=== PATIENT | male | born 1985 | race African-American/Black ===

== ENCOUNTER 2025-07-08 04:57 | Inpatient (IN) ==
[2025-07-08 05:46] LABS: Hematocrit (blood only) 47.6 % (42.0-52.0); Hemoglobin 15.5 g/dL (14.0-18.0); Immature Granulocytes # (auto) 0.04 K/uL (0.01-0.20); Immature Granulocytes % (auto) 0.5 %; Mean Corpuscular Hemoglobin 28.6 pg (25.0-34.0); Mean Corpuscular Volume 87.8 fL (80.0-100.0); Platelet Count 316 K/uL (130-400); RDW Standard Deviation 45.6 fL (36.4-46.3); Red Blood Count 5.42 M/uL (4.70-6.10); White Blood Count 7.59 K/ul (4.8-10.8)
--- NOTE | 2025-07-08 06:00 | Emergency Department Note ---
Impression & Plan Congestive heart failure, Elevated troponin, Pleural effusion, Epigastric discomfort, Hepatic congestion ED Provider Note Name: SUNITHA DINERO Age: 39 Sex: Male Arrives Via: Walk-In Informant: Patient ED Provider: All Enamorado MD Chief Complaint: Epigastric discomfort Impression: As per impressions above Medical Decision Makin-year-old gentleman arrives for evaluation of primarily epigastric pain ongoing for the last month and gradually worsening. Associated with some increasing dry cough the last few days to week as well. Is worse with exertion and any eating. Examination he does seem to have a fair amount of epigastric tenderness palpation. He is quite hypertensive on arrival as well. He was given some IV fluids in case his tachycardia that was also noted was dehydration related. This resulted in an improvement in his heart rate but he did start having some hypoxia on room air while sleeping. Chest x-ray shows a mildly enlarged cardiac border. CT was obtained given the abdominal pain and tenderness to palpation. Fortunately CT does not show any acute surgical findings however it does show a fair amount of hepatic congestion along with pleural effusions and a small pericardial effusion. My suspicion is patient is actually having some form of congestive failure. This may be related to the significant hypertension he arrived with or other cause. His troponin is also bumped some though it is stable on recheck and reviewing chart he had a similarly elevated troponin earlier in the year when evaluated for shortness of breath. I think given the constitution of findings patient will need further workup for evaluation of these issues. Patient is comfortable with plan. He is not significantly dyspneic and he does not have any clear PE risk factors thus we will hold off on CT PE given he already received the dye load and I think PE is low likelihood. He also had a CT PE within the last year which was also negative without risk factors since then. Triage/Nursing Notes reviewed by Me Differential:Pancreatitis, cholecystitis, GERD/peptic ulcer disease, ACS, dissection, PE, pneumonia, many other pathologies considered Vital Signs: reviewed and remarkable for hypertension, tachycardia Interventions: Normal saline bolus 1 L IV Labs:ED labs Reviewed by me and remarkable for mildly elevated troponin stable and recheck Imagin view chest x-ray mild congestive findings with an enlarged heart compared to CT of chest from several months ago. CT of the abdomen pelvis as per my informal interpretation reveals no free air, obstruction, significant inflammatory findings. See radiologist read for full. EKG:As per my interpretation. Indication epigastric pain. Sinus tachycardia 124 bpm QTc of 474. There is no ectopy nor overt ischemia appreciated. Compared to EKG of September 27, 2024 no significant change. Cardiac/Tele Monitoring: Cardiac Monitoring: An Order was placed for continuous cardiac monitoring. The monitor shows a rate of 120 with a sinus tach rhythm. [facility] and manage patient. Plan: Disposition:Hospitalization. Condition: Fair History of Present Illness: 39-year-old male arrives for evaluation of epigastric pain. Patient notes for the last month or so the pain has been gradually worsening. States when he gets up and moves or when he eats anything he gets pretty severe epigastric discomfort. The pain radiates to the right upper quadrant as well. Associated with nausea especially with eating. He also notes he has been belching and burping a lot the last few weeks. No specific chest pain but admits that he feels like he gets palpitations at times. He denies any lower abdominal pain. He has no history of abdominal issues or surgeries. He does have a familial history of a gastric ulcer bleeding in his grandmother. Patient has not had any black or bloody stools. Patient does not take any daily medications. He notes persistent cough as well for the last week. Cough is with minimal sputum and he does not feel short of breath or have any chest pain. He has not had any fevers. Does note some mild left ankle swelling which is chronic. Past Medical History: Asthma/bronchitis Home Medications: None Allergies: Walnuts Vitals:Blood Pressure: 162/122, Pulse 124, RR 16, T 36.9C, O2 95% on RA Physical Exam: GENERAL: Patient is anxious appearing and in mild distress. RESPIRATORY: No dyspnea. Clear to auscultation and equal bilaterally. CARDIOVASCULAR: Mild tachycardic.No murmur appreciated. GASTROINTESTINAL: Moderate epigastric tenderness palpation and mild right upper quadrant tenderness palpation with patient immediately belching/dry heaving with palpation of upper abdomen. Lower abdomen soft nontender. Normal active bowel sounds. EXTREMITIES: Normal motion all extremities, no cyanosis, trace edema. NEUROLOGIC: Alert and oriented. No focal neurologic deficits appreciated SKIN: No rash, no jaundice, no diaphoresis. PSYCH: Appropriate GCS: 15 ED Course: Times/Reassessments: Patient's heart rate has come down a bit with the initial IV fluids though it is noted that his oxygen drops at that when he falls asleep. No significant shortness of breath and he notes his epigastric pain has improved significantly. Agreeable to hospitalization for further workup and evaluation. All Enamorado MD Past Med/Surg History Problem List (Updated 07/08/25 @ 11:37 by All Enamorado MD) Hepatic congestion (Acute) Epigastric discomfort (Acute) Pleural effusion (Acute) Elevated troponin (Acute) Congestive heart failure (Acute) Shortness of breath Elevated troponin Edema Epigastric abdominal pain HSV-1 infection (Chronic) Fatigue (Acute) Left cervical lymphadenopathy (Acute) Low back pain (Acute) Medical History (Updated 07/08/25 @ 11:37 by All Enamorado MD) HTN (hypertension) Surgical History (Updated 07/08/25 @ 10:06 by Rachel Sanchez PA-C) No pertinent past surgical history Family History (Updated 07/08/25 @ 10:07 by Rachel Sanchez PA-C) Father Alcoholism Grandmother (Maternal) Alcoholism Mother Stomach ulcer Social History (Updated 07/08/25 @ 10:07 by Rachel Sanchez PA-C) Smoking Status: Current some day smoker Tobacco Type: Cigars Hx Alcohol Use: Yes Hx Substance Use: No Preferred Language: French Current Living Situation: Alone current occupational status: employed 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 [employer] Feels Safe at Home: Yes Allergies Allergies Allergy/AdvReac Type Severity Reaction Status Date / Time walnut Allergy Unknown "WEIRD Unverified 07/17/23 01:39 FEELING IN MY TONGUE,INFLAMMATION" Home Meds Home Medications Medication Instructions Recorded Confirmed No Known Home Medications 07/17/23 07/08/25 Results & Data (ED) Vital Signs Vital Signs - 24 hr 07/08/25 04:58 07/08/25 05:00 07/08/25 05:00 Temperature 36.6 C 36.9 C Temperature Source Oral Axillary Pulse Rate 118 H 117 H Pulse Rate [Apical] 117 H Pulse Rate from SpO2 Sensor Pulse Rhythm Regular Pulse Strength Normal Respiratory Rate 19 16 19 Respiratory Effort / Characteristics Non-Labored Spontaneous Non-Labored Respiratory Depth Normal Normal Respiratory Pattern Regular Regular Blood Pressure 162/122 H Blood Pressure [Right Arm] 151/112 H Blood Pressure Mean 135 Blood Pressure Mean [Right Arm] 125 Blood Pressure Position Sitting Blood Pressure Position [Right Arm] Pulse Oximetry 98 95 98 Oxygen Delivery Method Room Air Room Air Room Air Sepsis Recent Fever Within 48 Hours No Sepsis New/Unexplained Change in Mental Status N/A Sepsis Action Taken by Nursing No Action Required 07/08/25 05:19 07/08/25 07:00 07/08/25 07:00 Temperature Temperature Source Pulse Rate 124 H 106 H Pulse Rate [Apical] 105 H Pulse Rate from SpO2 Sensor 105 H Pulse Rhythm Pulse Strength Respiratory Rate 18 20 Respiratory Effort / Characteristics Non-Labored Spontaneous Respiratory Depth Normal Respiratory Pattern Regular Blood Pressure Blood Pressure [Right Arm] 144/109 H Blood Pressure Mean Blood Pressure Mean [Right Arm] 120 Blood Pressure Position Blood Pressure Position [Right Arm] Lying Pulse Oximetry 98 97 Oxygen Delivery Method Room Air Sepsis Recent Fever Within 48 Hours Sepsis New/Unexplained Change in Mental Status Sepsis Action Taken by Nursing 07/08/25 07:00 07/08/25 07:30 07/08/25 08:00 Temperature Temperature Source Pulse Rate 98 H Pulse Rate [Apical] Pulse Rate from SpO2 Sensor 98 H Pulse Rhythm Pulse Strength Respiratory Rate 21 Respiratory Effort / Characteristics Respiratory Depth Respiratory Pattern Blood Pressure 144/109 H 159/123 H Blood Pressure [Right Arm] Blood Pressure Mean 121 136 Blood Pressure Mean [Right Arm] Blood Pressure Position Blood Pressure Position [Right Arm] Pulse Oximetry 99 Oxygen Delivery Method Sepsis Recent Fever Within 48 Hours Sepsis New/Unexplained Change in Mental Status Sepsis Action Taken by Nursing 07/08/25 08:00 07/08/25 08:30 07/08/25 08:51 Temperature Temperature Source Pulse Rate 98 H 105 H 103 H Pulse Rate [Apical] Pulse Rate from SpO2 Sensor 96 H 103 H 104 H Pulse Rhythm Pulse Strength Respiratory Rate 23 28 H 25 H Respiratory Effort / Characteristics Respiratory Depth Respiratory Pattern Blood Pressure Blood Pressure [Right Arm] Blood Pressure Mean Blood Pressure Mean [Right Arm] Blood Pressure Position Blood Pressure Position [Right Arm] Pulse Oximetry 99 98 100 Oxygen Delivery Method Sepsis Recent Fever Within 48 Hours Sepsis New/Unexplained Change in Mental Status Sepsis Action Taken by Nursing 07/08/25 08:52 Temperature Temperature Source Pulse Rate Pulse Rate [Apical] Pulse Rate from SpO2 Sensor Pulse Rhythm Pulse Strength Respiratory Rate Respiratory Effort / Characteristics Respiratory Depth Respiratory Pattern Blood Pressure 147/118 H Blood Pressure [Right Arm] Blood Pressure Mean 130 Blood Pressure Mean [Right Arm] Blood Pressure Position Blood Pressure Position [Right Arm] Pulse Oximetry Oxygen Delivery Method Sepsis Recent Fever Within 48 Hours Sepsis New/Unexplained Change in Mental Status Sepsis Action Taken by Nursing Laboratory Data 07/08/25 05:17 07/08/25 05:17 Lab Results 07/08/25 07/08/25 Range/Units 05:17 07:15 WBC 7.59 (4.8-10.8) K/ul RBC 5.42 (4.70-6.10) M/uL Hgb 15.5 (14.0-18.0) g/dL Hct 47.6 (42.0-52.0) % MCV 87.8 (80.0-100.0) fL MCH 28.6 (25.0-34.0) pg MCHC 32.6 (32.0-36.0) g/dL RDW Std Deviation 45.6 (36.4-46.3) fL RDW Coeff of Jaswant 14.2 (11.5-14.5) % Plt Count 316 (130-400) K/uL MPV 10.2 (9.4-12.4) fL Immature Gran % (Auto) 0.5 % Neut % (Auto) 58.5 % Lymph % (Auto) 29.8 % Pendleton % (Auto) 9.2 % Eos % (Auto) 1.1 % Baso % (Auto) 0.9 % Neut # (Auto) 4.44 (1.40-6.50) K/uL Lymph # (Auto) 2.26 (1.20-3.40) K/uL [place] # (Auto) 0.70 H (0.11-0.59) K/uL Eos # (Auto) 0.08 (0.00-0.50) K/uL Baso # (Auto) 0.07 (0.00-0.20) K/uL Immature Gran # (Auto) 0.04 (0.01-0.20) K/uL Sodium 141 (136-145) mmol/L Potassium 4.1 (3.5-5.1) mmol/L Chloride 109 H (98-107) mmol/L Carbon Dioxide 25 (21-32) mmol/L Anion Gap 7 (3-11) BUN 20 (6-23) mg/dl Creatinine 1.27 (0.6-1.4) mg/dl Est Cr Clr Drug Dosing 106.2 ml/min eGFR 73.24 BUN/Creatinine Ratio 15.7 (10-20) Glucose 76 (70-99(Fasting)) mg/dl Calcium 8.5 L (8.6-10.3) mg/dl Magnesium 2.1 (1.7-2.4) mg/dl Total Bilirubin 0.5 (0.2-1.0) mg/dl AST 39 (13-39) U/L ALT 74 H (7-52) U/L Alkaline Phosphatase 40 (34-104) U/L Troponin I High Sens 37.1 H 34.6 H (0-20) pg/ml Total Protein 5.6 L (6.0-8.3) gm/dl Albumin 3.6 (3.4-5.0) gm/dl Globulin 2.0 L (2.5-4.0) gm/dl Albumin/Globulin Ratio 1.8 (0.9-2) Triglycerides 119 (0-150) mg/dl Cholesterol 136 (0-200) mg/dl LDL Cholesterol, Calc 77 mg/dl VLDL Cholesterol, Calc 24 (0-30) mg/dl HDL Cholesterol 35 mg/dl Cholesterol/HDL Ratio 3.9 (0-5) Lipase 45 (11-82) U/L TSH 2.290 (0.300-4.500) uIu/ml Administered Medications Discontinued Medications Famotidine (Famotidine 20 Mg Tab) 20 mg PO NOW ONE Stop: 07/08/25 09:00 Last Admin: 07/08/25 09:12 Dose: 20 mg Documented By: SHIVAM Furosemide (Furosemide Inj 20 Mg/2 Ml Vial) 20 mg IV ONE ONE Stop: 07/08/25 08:56 Last Admin: 07/08/25 09:07 Dose: 20 mg Documented By: SHIVAM Furosemide (Furosemide Inj 20 Mg/2 Ml Vial) 40 mg IV ONE ONE Stop: 07/08/25 13:55 Last Admin: 07/08/25 14:03 Dose: 40 mg Documented By: MAGGI Sodium Chloride (Nss) 1,000 mls @ 999 mls/hr IV .Q1H1M ONE Stop: 07/08/25 06:56 Last Infusion: 07/08/25 09:20 Dose: Infused Documented By: Admin: 07/08/25 06:13 Dose: 999 mls/hr Documented By: DANA Ioversol (Optiray 320 100ml) 100 ml IV ONCE ONE Stop: 07/08/25 06:30 Last Admin: 07/08/25 06:30 Dose: 93 ml Documented By: MARKUS Ioversol (Optiray 320 125ml) 120 ml IV ONCE ONE Stop: 07/08/25 11:25 Last Admin: 07/08/25 11:24 Dose: 120 ml Documented By: DIANA Labetalol HCl (Labetalol Hcl Iv 5 Mg/Ml 20ml) 10 mg IV NOW STA Stop: 07/08/25 10:16 Last Admin: 07/08/25 11:35 Dose: 10 mg Documented By: MAGGI Pantoprazole Sodium (Pantoprazole 40 Mg Tab) 40 mg PO NOW STA Stop: 07/08/25 09:00 Last Admin: 07/08/25 09:12 Dose: 40 mg Documented By: SHIVAM Imaging Data Radiologist's Impression: Chest X-Ray 07/08/25 05:09 EXAM: XR chest 1V portable CLINICAL HISTORY: Chest pain, nonspecific TECHNIQUE: An X-ray image of the chest is obtained in AP projection. COMPARISON: No prior studies are available for comparison. FINDINGS: Pulmonary Parenchyma: Lungs are clear bilaterally. No evidence of consolidation, collapse, or focal opacities. No pulmonary nodules are identified. No evidence of pleural effusion or pleural thickening. Heart and Mediastinum: Heart size and shape are normal. No mediastinal widening or masses. No hilar or mediastinal lymphadenopathy. Bony Thorax: Bony thorax appears intact without fractures or deformities. Soft Tissues: Soft tissues overlying the chest wall are unremarkable. IMPRESSION: Normal chest X-ray. No acute cardiopulmonary abnormalities are identified. Electronically signed by Jean Marie Sprague 07-08-2025 07:16 AM Abdomen/Pelvis CT 07/08/25 05:56 EXAM: CT abd pelvis IV con only CLINICAL HISTORY: Intractable epigastric pain. TECHNIQUE: Contrast-enhanced CT of the abdomen and pelvis was performed, with the following protocol: axial images with, and reconstructed coronal and sagittal images. Intravenous contrast 93 ml Optiray 320 was administered. One of the following dose reduction techniques was utilized for this exam: Automated exposure control, adjustment of the mA and/or kV according to patient size, and use of iterative reconstruction. COMPARISON: None. FINDINGS: Abdomen: Liver: Enlarged in size and heterogeneous in attenuation. No focal lesions, cysts, or masses were identified. Hepatic vasculature and biliary ducts are unremarkable. Gallbladder and Biliary System: The gallbladder is normal in size and shape. No gallstones were identified. Mild pericholecystic edema is seen. The common bile duct is normal in caliber without dilation. Pancreas: The pancreatic head, body, and tail are visualized and appear normal in size and density. No pancreatic masses or calcifications were noted. The pancreatic duct is not dilated. Spleen: Normal in size, shape, and density. No splenic lesions or masses were identified. Appendix: The appendix is normal in size without tomer-appendiceal fat stranding and without an appendicolith. No evidence of appendiceal abscess or perforation. Kidneys and Adrenal Glands: Both kidneys are normal in size, shape, and position. Cortical thickness is within normal limits. No renal calculi or hydronephrosis. Adrenal glands are unremarkable with no evidence of masses or hyperplasia. Pelvis: Urinary Bladder: Normal in contour and wall thickness. No intraluminal lesions identified. Prostate: Normal in size and contour. No focal lesions or masses identified. Seminal Vesicles: Normal in size and appearance. No abnormalities noted. Rectum and Sigmoid Colon: Normal wall thickness and no evidence of mass. Peritoneal and Retroperitoneal Structures: Mild pelvic free fluid is seen. No lymphadenopathy was noted. Bowel: The visualized bowel loops are normal in caliber and appearance. No evidence of bowel obstruction or wall thickening. Bones and Soft Tissues: Pelvic bones and soft tissues are unremarkable. No fractures or abnormal masses were identified. Diffuse subcutaneous edema and fat smudging are seen. Lower chest cuts show minimal right-sided pleural effusion, minimal pericardial effusion, and cardiomegaly. IMPRESSION: 1. Hepatomegaly with heterogeneous attenuation, possibly hepatitis vs congestive changes. 2. Mild ascites. 3. Minimal right-sided pleural effusion, minimal pericardial effusion, and cardiomegaly. 4. Diffuse subcutaneous edema and fat smudging are seen. 5. Clinical and lab parameters correlation is suggested. Electronically signed by Eulogio Ramsey 07-08-2025 07:53 AM Abdomen Ultrasound 07/08/25 08:55 ULTRASOUND RIGHT UPPER QUADRANT ABDOMEN CLINICAL HISTORY: Regular quadrant abdominal pain. Cough and belching. COMPARISON STUDY: Chest and abdominal CT scans dated 07/08/2025 TECHNIQUE: Real-time, grayscale, and color flow sonography of the right upper quadrant of the abdomen was performed. Images are reviewed in the transverse and longitudinal planes. FINDINGS: Liver: The liver is normal in size and echotexture. There is no intrahepatic biliary ductal dilatation. The main portal vein is patent. The portal triads appear echogenic, likely related to periportal edema seen by CT. There may also be gas within vascular structures. Gallbladder: The gallbladder wall is top normal in thickness measuring 3 mm and appears slightly edematous. No shadowing gallstones are seen. There is no pericholecystic fluid. A sonographic Martin's sign is reportedly absent. The common bile duct measures up to 0.8 cm in diameter. Pancreas: Visualized portions of the pancreatic head and body are normal in appearance. The splenic vein is patent. Right kidney: Survey images of the right kidney demonstrate normal size and echotexture. There is no hydronephrosis. Ascites: None. IMPRESSION: 1. No gallstones are identified and there is no sonographic evidence of acute cholecystitis. 2. The portal triads appear echogenic, likely related to periportal edema which was better seen on today's abdominal CT. Correlate clinically for evidence of a nonspecific hepatitis. 3. There may also be gas within hepatic vascular structures which was better appreciated on today's chest CT. 4. The gallbladder wall is top normal in thickness and appears mildly edematous, likely related to adjacent hepatocellular disease. ACT 112: Negative or not required by law. Electronically signed by: Calixto West M.D. 07/08/2025 12:12 PM Venous Doppler Study 07/08/25 08:55 BILATERAL LOWER EXTREMITY VENOUS DOPPLER CLINICAL HISTORY: Lower extremity edema. Elevated d-dimer. COMPARISON STUDY: No previous studies for comparison. TECHNIQUE: Sonography of the deep venous system of the bilateral lower extremities was performed. Compression and augmentation were evaluated. FINDINGS: The bilateral common femoral, superficial femoral and popliteal veins were compressible. Augmentation was normal. Flow was shown within the deep calf vessels. IMPRESSION: No evidence of deep venous thrombus within the bilateral lower extremities. ACT 112: Negative or not required by law. Electronically signed by: Garrett Wilkins M.D. 07/08/2025 11:38 AM Discharge Plan Visit Data Chief Complaint: Abdominal Pain Stated Complaint: possible hernia, cough abd pain ED Provider: All Enamorado Discharge Problem: Congestive heart failure, Elevated troponin, Pleural effusion, Epigastric discomfort, Hepatic congestion Patient Disposition: Admitted As Inpatient Condition: Fair Discharge Instructions Interventions: ED Discharge Assessment Last Done: 07/08/25 11:52 Discharge Problem: Congestive heart failure Qualifiers: Heart failure type: unspecified Heart failure chronicity: acute Qualified Code(s): I50.9 - Heart failure, unspecified
[2025-07-08 06:08] LABS: Alanine Aminotransferase 74.0 U/L (7-52); Albumin Globulin Ratio 1.8 (0.9-2); Albumin Level 3.6 gm/dl (3.4-5.0); Alkaline Phosphatase 40.0 U/L (34-104); Anion Gap 7.0 (3-11); Bilirubin,Total 0.5 mg/dl (0.2-1.0); Blood Urea Nitrogen 20.0 mg/dl (6-23); Calcium 8.5 mg/dl (8.6-10.3); Carbon Dioxide 25.0 mmol/L (21-32); Chloride 109.0 mmol/L (98-107); Creatinine Clr Calc Pharmacy 106.2 ml/min; Globulin 2.0 gm/dl (2.5-4.0); Glucose 76.0 mg/dl (70-99(Fasting)); Lipase 45.0 U/L (11-82); Potassium 4.1 mmol/L (3.5-5.1); Sodium 141.0 mmol/L (136-145); Total Protein 5.6 gm/dl (6.0-8.3)
[2025-07-08] MEDS: SODIUM CHLORIDE 0.9% 1,000 ML IV ONE (06:13)
[2025-07-08] MEDS: OPTIRAY 320 100ml IV ONE (06:30)
[2025-07-08 06:41] LABS: Thyroid Stimulating Hormone 2.29 uIu/ml (0.300-4.500)
--- NOTE | 2025-07-08 07:17 | XRay Report ---
EXAM: XR chest 1V portable CLINICAL HISTORY: Chest pain, nonspecific TECHNIQUE: An X-ray image of the chest is obtained in AP projection. COMPARISON: No prior studies are available for comparison. FINDINGS: Pulmonary Parenchyma: Lungs are clear bilaterally. No evidence of consolidation, collapse, or focal opacities. No pulmonary nodules are identified. No evidence of pleural effusion or pleural thickening. Heart and Mediastinum: Heart size and shape are normal. No mediastinal widening or masses. No hilar or mediastinal lymphadenopathy. Bony Thorax: Bony thorax appears intact without fractures or deformities. Soft Tissues: Soft tissues overlying the chest wall are unremarkable. IMPRESSION: Normal chest X-ray. No acute cardiopulmonary abnormalities are identified. Electronically signed by Jean Marie Sprague 07-08-2025 07:16 AM
--- NOTE | 2025-07-08 07:53 | CT Scan Report ---
EXAM: CT abd pelvis IV con only CLINICAL HISTORY: Intractable epigastric pain. TECHNIQUE: Contrast-enhanced CT of the abdomen and pelvis was performed, with the following protocol: axial images with, and reconstructed coronal and sagittal images. Intravenous contrast 93 ml Optiray 320 was administered. One of the following dose reduction techniques was utilized for this exam: Automated exposure control, adjustment of the mA and/or kV according to patient size, and use of iterative reconstruction. COMPARISON: None. FINDINGS: Abdomen: Liver: Enlarged in size and heterogeneous in attenuation. No focal lesions, cysts, or masses were identified. Hepatic vasculature and biliary ducts are unremarkable. Gallbladder and Biliary System: The gallbladder is normal in size and shape. No gallstones were identified. Mild pericholecystic edema is seen. The common bile duct is normal in caliber without dilation. Pancreas: The pancreatic head, body, and tail are visualized and appear normal in size and density. No pancreatic masses or calcifications were noted. The pancreatic duct is not dilated. Spleen: Normal in size, shape, and density. No splenic lesions or masses were identified. Appendix: The appendix is normal in size without tomer-appendiceal fat stranding and without an appendicolith. No evidence of appendiceal abscess or perforation. Kidneys and Adrenal Glands: Both kidneys are normal in size, shape, and position. Cortical thickness is within normal limits. No renal calculi or hydronephrosis. Adrenal glands are unremarkable with no evidence of masses or hyperplasia. Pelvis: Urinary Bladder: Normal in contour and wall thickness. No intraluminal lesions identified. Prostate: Normal in size and contour. No focal lesions or masses identified. Seminal Vesicles: Normal in size and appearance. No abnormalities noted. Rectum and Sigmoid Colon: Normal wall thickness and no evidence of mass. Peritoneal and Retroperitoneal Structures: Mild pelvic free fluid is seen. No lymphadenopathy was noted. Bowel: The visualized bowel loops are normal in caliber and appearance. No evidence of bowel obstruction or wall thickening. Bones and Soft Tissues: Pelvic bones and soft tissues are unremarkable. No fractures or abnormal masses were identified. Diffuse subcutaneous edema and fat smudging are seen. Lower chest cuts show minimal right-sided pleural effusion, minimal pericardial effusion, and cardiomegaly. IMPRESSION: 1. Hepatomegaly with heterogeneous attenuation, possibly hepatitis vs congestive changes. 2. Mild ascites. 3. Minimal right-sided pleural effusion, minimal pericardial effusion, and cardiomegaly. 4. Diffuse subcutaneous edema and fat smudging are seen. 5. Clinical and lab parameters correlation is suggested. Electronically signed by Eulogio Ramsey 07-08-2025 07:53 AM
[2025-07-08] MEDS: FUROSEMIDE INJ 20 MG/2 ML VIAL IV ONE ×2 (09:07→14:03)
[2025-07-08] MEDS: FAMOTIDINE 20 MG TAB PO ONE (09:12)
--- NOTE | 2025-07-08 09:41 | History & Physical Report ---
Date of Service July 08, 2025 Assessment & Plan (1) Epigastric abdominal pain: (2) Edema: (3) Elevated troponin: (4) Shortness of breath: (5) HTN (hypertension): Plan Mr. Lui is a 39M with no significant PMH other than alcohol and tobacco abuse. He is presenting with 4-5 weeks of worsening epigastric discomfort, "band like tightness," with associated SOB, new lower extremity swelling, and post prandial sx. He drinks several alcoholic beverages daily, but has not had any for the last week. Pertinent lab findings include an elevated troponin at 34.6pg/ml. CT a/p: with Hepatomegaly with heterogenous attenuation, possibly hepatitis vs congestive changes, mild ascites, mild right pleural effusion, minimal pericardial effusion and cardiomegaly with diffuse subcutaneous edema and fat smudging. His ALT is minimal elevated at 74U/L but other liver functions are normal. PLT ct normal, PT/INR pending. Pt presents with evidence of what appears to be decompensated failure, whether Cardiac vs hepatic that is to be determined. #Decompensated failure #Elevated trop #Elevated blood pressure/suspected underlying HTN #Sinus tachycardia admit to [facility] obtain echo, monitor on tele cycle trops will give lasix 20mg IV x 1 now, re evaluate for further dosing based on response IV labetalol 10mg x 1 for hypertension, likely to need oral agent, pending echo obtain dimer, b/l venous dopplers, consider CTA chest pending dimer obtain a1c and lipid panel #Epigastric pain ? if 2/2 congestive changes for GI pathology given alcohol use will place on oral PPI BID and pepcid once daily obtain RUQ US given ct findings for pericholecystic edema, consider HIDA if ne gative #Alcohol abuse encourage cessation last drink 1 week ago making withdrawal less likely #DVT ppx: SCDS for now, if to remain hospitalized > 24hrs consider adding lovenox FULL CODE PCP: None Dispo: admit to [facility] for further work up Pt was seen and examined in collaboration with Dr. Marquez, please see addendum I spent a total of 76 minutes coordinating, documenting and providing care for this patient excluding time spent in the performance of separately billed services or time spent by another provider/QHP. History of Present Illness Chief Complaint: Epigastric tightening and bloating x 1 month. Primary Care Provider: NO PCP This is a 39-year-old male who has no known significant past medical history except for alcohol and tobacco abuse who presents to ED secondary to epigastric tightening and bloating x 1 month. He does not follow with a primary care provider. He states over the last month noting a bandlike tightness in his upper abdomen that gets worse with exertion. He reports even minimal walking or a flight of steps he gets this tightness along with shortness of breath. It has been progressing over the last month. He also reports anytime he eats anything fatty it tends to worsen his symptoms. He denies any carter right upper quadrant pain. He denies any carter chest pain or any radiation of his symptoms to his neck arm or jaw. He denies any fever, chills, sweats, lightheadedness, dizzin ess, chest pain, hemoptysis, nausea, vomiting, diarrhea, change in her bowel or urinary habits. He does report feeling extremely bloated. He reports not eating tends to make his symptoms better. He notes increased lower extremity swelling. He thought this was related to gout. He is unsure if he has had any weight changes he has not monitored this. He does drink alcohol on a daily basis. He drinks several malt beverages along with a few shots a day. He has not been able to do this for the past week due to his symptoms. He denies any symptoms of withdrawal. He has tried [id number] symptoms including Pepcid, Prilosec and magnesium products with no relief. He has not tried anything on a consistent basis. He reports a family history of alcoholism in his father and his maternal grandmother. He also notes his mother has had several bleeding ulcers. He denies any family history any premature CAD or known cirrhosis. He denies any prior surgical history. He does report a history of anemia as an as well as vomiting bile. Allergies Allergy/AdvReac Type Severity Reaction Status Date / Time walnut Allergy Unknown "WEIRD Unverified 07/17/23 01:39 FEELING IN MY TONGUE,INFLAMMATION" Home Medications Medication Instructions Recorded Confirmed Type No Known Home Medications 07/17/23 07/17/23 History Past Med/Surg History Problem List (Updated 07/08/25 @ 10:13 by Rachel Sanchez PA-C) Shortness of breath Elevated troponin Edema Epigastric abdominal pain HSV-1 infection (Chronic) Fatigue (Acute) Left cervical lymphadenopathy (Acute) Low back pain (Acute) Medical History (Updated 07/08/25 @ 10:13 by Rachel Sanchez PA-C) HTN (hypertension) Surgical History (Updated 07/08/25 @ 10:06 by Rachel Sanchez PA-C) No pertinent past surgical history Family History (Updated 07/08/25 @ 10:07 by Rachel Sanchez PA-C) Father Alcoholism Grandmother (Maternal) Alcoholism Mother Stomach ulcer Social History (Updated 07/08/25 @ 10:07 by Rachel Sanchez PA-C) Smoking Status: Current some day smoker Tobacco Type: Cigars Hx Alcohol Use: Yes Hx Substance Use: No Preferred Language: Ghanaian Current Living Situation: Alone current occupational status: employed 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 [employer] Feels Safe at Home: Yes Review of Systems Review of Systems: All systems reviewed & are unremarkable except as noted in HPI & below Physical Exam Physical Exam: Constitutional: WD/WN, vitals as above, NAD, sitting up in bed, pleasant, conversing easily, appears anxious Head: Normocephalic, Atraumatic Eyes: conjunctivae normal, anicteric sclerae ENMT: external ear and nose normal, oropharynx normal Neck: trachea midline, no thyromegaly normal visual inspection Respiratory: CTAB, no W/R/R, normal inspection, no accessory muscle use Cardiovascular: tachycardic rate regular rhythm, no murmur, +1 lower ext pre tibial edema Chest: normal inspection of chest Abdomen: S, NT, +mild distension, +BS x 4, negative murphys, no rebound/guarding Musculoskeletal: no cyanosis or clubbing, extremities AROM x 4 Skin: no rashes, warm and dry normal turgor Neurologic: no face palsy, no dysarthria CN's II-XI intact bilaterally and moves all extremities Psychiatric: A+Ox3, euthymic affect Results & Data Results & Data Vital Signs (Past 12 Hours) Vital Signs Temp Pulse Pulse Resp BP BP Pulse Ox 07/08/25 07:00 105 H 18 144/109 H 98 07/08/25 05:19 124 H 07/08/25 05:00 117 H 19 98 07/08/25 05:00 36.9 C 118 H 16 162/122 H 95 07/08/25 04:58 36.6 C 117 H 19 151/112 H 98 O2 Del Method 07/08/25 07:00 Room Air 07/08/25 05:19 07/08/25 05:00 Room Air 07/08/25 05:00 Room Air 07/08/25 04:58 Room Air Laboratory Results I have independently reviewed and interpreted patient's admitting labs including CBC, CMP, PTT, PT/INR, mag and troponin. Diagnostic Findings Chest X-Ray 07/08/25 05:09 EXAM: XR chest 1V portable CLINICAL HISTORY: Chest pain, nonspecific TECHNIQUE: An X-ray image of the chest is obtained in AP projection. COMPARISON: No prior studies are available for comparison. FINDINGS: Pulmonary Parenchyma: Lungs are clear bilaterally. No evidence of consolidation, collapse, or focal opacities. No pulmonary nodules are identified. No evidence of pleural effusion or pleural thickening. Heart and Mediastinum: Heart size and shape are normal. No mediastinal widening or masses. No hilar or mediastinal lymphadenopathy. Bony Thorax: Bony thorax appears intact without fractures or deformities. Soft Tissues: Soft tissues overlying the chest wall are unremarkable. IMPRESSION: Normal chest X-ray. No acute cardiopulmonary abnormalities are identified. Electronically signed by Jean Marie Sprague 07-08-2025 07:16 AM Abdomen/Pelvis CT 07/08/25 05:56 EXAM: CT abd pelvis IV con only CLINICAL HISTORY: Intractable epigastric pain. TECHNIQUE: Contrast-enhanced CT of the abdomen and pelvis was performed, with the following protocol: axial images with, and reconstructed coronal and sagittal images. Intravenous contrast 93 ml Optiray 320 was administered. One of the following dose reduction techniques was utilized for this exam: Automated exposure control, adjustment of the mA and/or kV according to patient size, and use of iterative reconstruction. COMPARISON: None. FINDINGS: Abdomen: Liver: Enlarged in size and heterogeneous in attenuation. No focal lesions, cysts, or masses were identified. Hepatic vasculature and biliary ducts are unremarkable. Gallbladder and Biliary System: The gallbladder is normal in size and shape. No gallstones were identified. Mild pericholecystic edema is seen. The common bile duct is normal in caliber without dilation. Pancreas: The pancreatic head, body, and tail are visualized and appear normal in size and density. No pancreatic masses or calcifications were noted. The pancreatic duct is not dilated. Spleen: Normal in size, shape, and density. No splenic lesions or masses were identified. Appendix: The appendix is normal in size without tomer-appendiceal fat stranding and without an appendicolith. No evidence of appendiceal abscess or perforation. Kidneys and Adrenal Glands: Both kidneys are normal in size, shape, and position. Cortical thickness is within normal limits. No renal calculi or hydronephrosis. Adrenal glands are unremarkable with no evidence of masses or hyperplasia. Pelvis: Urinary Bladder: Normal in contour and wall thickness. No intraluminal lesions identified. Prostate: Normal in size and contour. No focal lesions or masses identified. Seminal Vesicles: Normal in size and appearance. No abnormalities noted. Rectum and Sigmoid Colon: Normal wall thickness and no evidence of mass. Peritoneal and Retroperitoneal Structures: Mild pelvic free fluid is seen. No lymphadenopathy was noted. Bowel: The visualized bowel loops are normal in caliber and appearance. No evidence of bowel obstruction or wall thickening. Bones and Soft Tissues: Pelvic bones and soft tissues are unremarkable. No fractures or abnormal masses were identified. Diffuse subcutaneous edema and fat smudging are seen. Lower chest cuts show minimal right-sided pleural effusion, minimal pericardial effusion, and cardiomegaly. IMPRESSION: 1. Hepatomegaly with heterogeneous attenuation, possibly hepatitis vs congestive changes. 2. Mild ascites. 3. Minimal right-sided pleural effusion, minimal pericardial effusion, and cardiomegaly. 4. Diffuse subcutaneous edema and fat smudging are seen. 5. Clinical and lab parameters correlation is suggested. Electronically signed by Eulogio Ramsey 07-08-2025 07:53 AM Medications Administered Medication List Discontinued Medications Famotidine (Famotidine 20 Mg Tab) 20 mg PO NOW ONE Stop: 07/08/25 09:00 Last Admin: 07/08/25 09:12 Dose: 20 mg Documented By: LUCASK Furosemide (Furosemide Inj 20 Mg/2 Ml Vial) 20 mg IV ONE ONE Stop: 07/08/25 08:56 Last Admin: 07/08/25 09:07 Dose: 20 mg Documented By: SHIVAM Sodium Chloride (Nss) 1,000 mls @ 999 mls/hr IV .Q1H1M ONE Stop: 07/08/25 06:56 Last Infusion: 07/08/25 09:20 Dose: Infused Documented By: Admin: 07/08/25 06:13 Dose: 999 mls/hr Documented By: DANA Ioversol (Optiray 320 100ml) 100 ml IV ONCE ONE Stop: 07/08/25 06:30 Last Admin: 07/08/25 06:30 Dose: 93 ml Documented By: MARKUS Pantoprazole Sodium (Pantoprazole 40 Mg Tab) 40 mg PO NOW STA Stop: 07/08/25 09:00 Last Admin: 07/08/25 09:12 Dose: 40 mg Documented By: TNK ECG Additional Comments: I have independently reviewed and interpreted patient's admitting EKG which revealed: 124 ST, no st or t wave changes noted COVID-19 Results Results COVID-19 Adm Lab Results: RBC 5.42 M/uL (4.70-6.10) 07/08/25 WBC 7.59 K/ul (4.8-10.8) 07/08/25 Hgb 15.5 g/dL (14.0-18.0) 07/08/25 Hct 47.6 % (42.0-52.0) 07/08/25 Plt Count 316 K/uL (130-400) 07/08/25 Neutrophils (%) (Auto) 58.5 % 07/08/25 Lymphocytes (%) (Auto) 29.8 % 07/08/25 Monocytes # (Auto) 0.70 K/uL (0.11-0.59) H 07/08/25 Eosinophils # (Auto) 0.08 K/uL (0.00-0.50) 07/08/25 Immature Granulocyte % (Auto) 0.5 % 07/08/25 Neutrophils # (Auto) 4.44 K/uL (1.40-6.50) 07/08/25 Lymphocytes # (Auto) 2.26 K/uL (1.20-3.40) 07/08/25 Monocytes # (Auto) 0.70 K/uL (0.11-0.59) H 07/08/25 Eosinophils # (Auto) 0.08 K/uL (0.00-0.50) 07/08/25 Basophils # (Auto) 0.07 K/uL (0.00-0.20) 07/08/25 Immature Granulocyte # (Auto) 0.04 K/uL (0.01-0.20) 5 Na 141 mmol/L (136-145) 07/08/25 K 4.1 mmol/L (3.5-5.1) 07/08/25 Cl 109 mmol/L (98-107) H 07/08/25 CO2 25 mmol/L (21-32) 07/08/25 Anion Gap 7 (3-11) 07/08/25 BUN 20 mg/dl (6-23) 07/08/25 Creatinine 1.27 mg/dl (0.6-1.4) 07/08/25 BUN/Creatinine Ratio 15.7 (10-20) 07/08/25 Glucose Level 76 mg/dl (70-99(Fasting)) 07/08/25 Ca 8.5 mg/dl (8.6-10.3) L 07/08/25 Total Bilirubin 0.5 mg/dl (0.2-1.0) 07/08/25 AST/SGOT 39 U/L (13-39) 07/08/25 ALT/SGPT 74 U/L (7-52) H 07/08/25 Alkaline Phosphatase 40 U/L (34-104) 07/08/25 Total Protein 5.6 gm/dl (6.0-8.3) L 07/08/25 Albumin 3.6 gm/dl (3.4-5.0) 07/08/25 Globulin 2.0 gm/dl (2.5-4.0) L 07/08/25 Albumin/Globulin Ratio 1.8 (0.9-2) 07/08/25 D-Dimer Pending 07/08/25 INR Pending 07/08/25 Adenovirus (PCR) Pending 07/08/25 B. parapertussis DNA (PCR) Pending 07/08/25 B. pertussis DNA (PCR) Pending 07/08/25 C. pneumoniae DNA (PCR) Pending 07/08/25 Coronavirus Type OC43 (PCR) Pending 07/08/25 Coronavirus Type HKU1 (PCR) Pending 07/08/25 Coronavirus Type 229E (PCR) Pending 07/08/25 COVID-19 PCR Pending 07/08/25 Coronavirus Type NL63 (PCR) Pending 07/08/25 Human Metapneumovirus (PCR) Pending 07/08/25 Influenza Virus Type B (PCR) Pending 07/08/25 M. pneumoniae (PCR) Pending 07/08/25 Parainfluenza Type 1 (PCR) Pending 07/08/25 Parainfluenza Type 2 (PCR) Pending 07/08/25 Parainfluenza Type 3 (PCR) Pending 07/08/25 Parainfluenza Type 4 (PCR) Pending 07/08/25 RSV (PCR) Pending 07/08/25 Enterovirus/Rhinovirus (PCR) Pending 07/08/25 Chest X-Ray 07/08/25 Code Status & VTE Plan Code Status FULL CODE VTE Prophylaxis Plan VTE Prophylaxis will be ordered: Yes Supervising Physician Co-Signing Physician Notes Patient seen and examined at bedside. Has been having orthopnea for weeks, has noticed pitting edema and enlarged abdomen as well. SOB with walking distances. Somewhat frequent alcohol use but has not really drank in a month. On exam, trace body wall pitting edema, 1+ pitting edema in legs bilaterally, elevated JVP. Hypertensive, tachycardic chronically. Creatinine below baseline with CKD. EKG personal ready with sinus tachycardia, concerning for biatrial enlargement. Presentation concerning for worsening chronic heart failure vs. hepatic process. Check echo, BNP, telemetry monitoring. Check RUQ US. Check TSH, A1c, lipids. Check biofire given chronic cough. Check urinalysis, protein/creatining ratio given CKD. Consideration for type 4 cardiorenal syndrome given chronicity of renal disease. I have seen and discussed the case with the collaborating advanced practitioner. I agree with the above H&P. I have reviewed and confirmed the patients medical history, the findings on physical examination, and the patients diagnosis and treatment plan with Rachel Sanchez PA-C and agree with the information documented. I spent a total of 40 minutes coordinating, documenting, and providing care for this patient excluding time spent in the performance of separately billed services. All of the aforementioned completed outside of collaborating with the assigned advanced practitioner for a full treatment plan. I have reviewed the advanced practitioner's documentation, and I agree with, and take responsibility for the plan of care
[2025-07-08 10:19] LABS: Magnesium 2.1 mg/dl (1.7-2.4)
[2025-07-08 10:42] LABS: INR 1.1 (0.9-1.1); Prothrombin Time 11.1 Seconds (9.0-12.0)
[2025-07-08 10:49] LABS: Cholesterol 136.0 mg/dl (0-200); HDL Cholesterol 35.0 mg/dl; Triglycerides 119.0 mg/dl (0-150)
[2025-07-08 11:00] LABS: Hemoglobin A1C 5.9 % (4.5-5.6)
--- NOTE | 2025-07-08 11:04 | XCELERA ---
[id number]
[2025-07-08 11:15] LABS: Chlamydia pneumoniae PCR Not Detected (NotDetected); Coronavirus 229E PCR Not Detected (NotDetected); Coronavirus CoV-2 (COVID19)PCR Not Detected (NotDetected); Coronavirus HKU1 PCR Not Detected (NotDetected); Coronavirus NL63 PCR Not Detected (NotDetected); Coronavirus OC43PCR Not Detected (NotDetected); Human Metapneumovirus PCR Not Detected (NotDetected); Parainfluenza Virus 1 PCR Not Detected (NotDetected); Parainfluenza Virus 2 PCR Not Detected (NotDetected); Parainfluenza Virus 3 PCR Not Detected (NotDetected); Parainfluenza Virus 4 PCR Not Detected (NotDetected); Respiratory Syncytial VirusPCR Not Detected (NotDetected); Rhinovirus/Enterovirus PCR Not Detected (NotDetected)
[2025-07-08] MEDS: OPTIRAY 320 125ml IV ONE (11:24)
[2025-07-08] MEDS: LABETALOL HCL IV 5 MG/ML 20ML IV STA (11:35)
--- NOTE | 2025-07-08 11:40 | Ultrasound Report ---
BILATERAL LOWER EXTREMITY VENOUS DOPPLER CLINICAL HISTORY: Lower extremity edema. Elevated d-dimer. COMPARISON STUDY: No previous studies for comparison. TECHNIQUE: Sonography of the deep venous system of the bilateral lower extremities was performed. Co mpression and augmentation were evaluated. FINDINGS: The bilateral common femoral, superficial femoral and popliteal veins were compressible. A ugmentation was normal. Flow was shown within the deep calf vessels. IMPRESSION: No evidence of deep venous thrombus within the bilateral lower extremities. ACT 112: Negative or not required by law. Electronically signed by: Garrett Wilkins M.D. 07/08/2025 11:38 AM
[2025-07-08] MEDS ORDERED: ONDANSETRON INJ 2 MG/ML 2 ML VIAL IV PRN (11:52)
[2025-07-08] MEDS ORDERED: MAGNESIUM HYDROXIDE SUSP 30 ML UDC PO PRN (11:52)
[2025-07-08] MEDS ORDERED: ALUMINUM/MAGNESIUM SUSP 30 ML UDC PO PRN (11:52)
[2025-07-08 11:53] LABS: Appearance Urine Clear (Clear); Glucose Urine UA Negative (Negative)
--- NOTE | 2025-07-08 12:02 | CT Scan Report ---
CT ANGIOGRAM OF THE CHEST CLINICAL HISTORY: Shortness of breath and cough. Evaluate for pulmonary embolus. COMPARISON STUDY: Chest CT July 17, 2023. Chest radiograph performed earlier today. CT of the abdo men and pelvis performed earlier today. TECHNIQUE: Following the IV administration of 120 cc of Optiray 320, CT angiogram of the chest was pe rformed from the upper abdomen to the thoracic inlet utilizing the pulmonary embolus protocol. Images are reviewed in the axial, sagittal, and coronal planes. 3-D MIPS images are created and assessed. I V contrast was administered without complication. A dose lowering technique was utilized adhering to the principles of ALARA. CT DOSE: 1073.5 mGy.cm FINDINGS: No pulmonary emboli are identified. The heart is moderately enlarged. There is no pericardi al effusion. No thoracic lymphadenopathy. There is no opacification of the thoracic aorta which is no rmal in caliber. There are trace bilateral pleural effusions. No pneumothorax. There is no consolidat ion to suggest pneumonia. Interlobular septal thickening is present. Visualized portions of the upper abdomen demonstrate reflux of contrast into the right and middle hepatic veins as well as the IVC. I n addition, there is a small amount of branching gas within the left hepatic lobe. This is new since abdominal CT performed earlier today. IMPRESSION: 1. No pulmonary emboli identified. 2. Cardiomegaly with interstitial pulmonary edema and trace bilateral pleural effusions. Reflux of co ntrast into the IVC and middle and right hepatic veins. This raises the possibility of right heart dy sfunction. 3. Small amount of branching gas within the left hepatic lobe. Although not definitive, this gas may be within the hepatic veins and represent reflux of gas related to IV insertion, particularly given r eflux of contrast into the right and middle hepatic veins. However, if abdominal pain, a CT of the ab domen and pelvis is recommended even the portal venous gas could appear similar. ACT 112: Negative or not required by law. Electronically signed by: Garrett Wilkins M.D. 07/08/2025 12:00 PM
--- NOTE | 2025-07-08 12:14 | Ultrasound Report ---
ULTRASOUND RIGHT UPPER QUADRANT ABDOMEN CLINICAL HISTORY: Regular quadrant abdominal pain. Cough and belching. COMPARISON STUDY: Chest and abdominal CT scans dated 07/08/2025 TECHNIQUE: Real-time, grayscale, and color flow sonography of the right upper quadrant of the abdomen was performed. Images are reviewed in the transverse and longitudinal planes. FINDINGS: Liver: The liver is normal in size and echotexture. There is no intrahepatic biliary ductal dilatatio n. The main portal vein is patent. The portal triads appear echogenic, likely related to periportal e oskar seen by CT. There may also be gas within vascular structures. Gallbladder: The gallbladder wall is top normal in thickness measuring 3 mm and appears slightly maki atous. No shadowing gallstones are seen. There is no pericholecystic fluid. A sonographic Martin's si gn is reportedly absent. The common bile duct measures up to 0.8 cm in diameter. Pancreas: Visualized portions of the pancreatic head and body are normal in appearance. The splenic v ein is patent. Right kidney: Survey images of the right kidney demonstrate normal size and echotexture. There is no hydronephrosis. Ascites: None. IMPRESSION: 1. No gallstones are identified and there is no sonographic evidence of acute cholecystitis. 2. The portal triads appear echogenic, likely related to periportal edema which was better seen on to day's abdominal CT. Correlate clinically for evidence of a nonspecific hepatitis. 3. There may also be gas within hepatic vascular structures which was better appreciated on today's c hest CT. 4. The gallbladder wall is top normal in thickness and appears mildly edematous, likely related to ad jacent hepatocellular disease. ACT 112: Negative or not required by law. Electronically signed by: Calixto West M.D. 07/08/2025 12:12 PM
[2025-07-08 12:16] LABS: Total Protein Urine Random < 4.0 mg/dl (0-11.9)
--- NOTE | 2025-07-08 12:32 | Cardiology Consultation ---
Date of Consultation July 08, 2025 Supervising Physician Co-Signing Physician Notes Patient seen and examined. Past medical history, surgical history, social history and family history have been reviewed. The medical record and all the above studies have been reviewed. Case DW GIGI including management. Severe CM - ischemic vs nonischemic Acute HFrEF - improved Severe biventricular heart failure Alcoholism - watch for ETOH withdrawal Abnormal Troponin - not indicative of Type I VA Recommend: correct and f/u electrolytes f/u renal function GDMT for HFrEF as tolerated metoprolol xl ACEI avoid hypovolemia keep patient euvolemic DVT prophylaxis 1.5 L / 24 hr fluid restriction strict I&Os salt restriction counseling ETOH cessation cardiac cath procedure, RIBA DW patient - he understands and agrees to proceed will schedule NPO post MN except meds History of Present Illness Reason for Consultation: Acute HFrEF Requesting Physician: Shruthi Hospitalist Attending Physician: Dr. San History of Present Illness Patient is a 39 year old male who presented to [facility] this morning with complaints of worsening SOB, fluid retention, epigastric pain, cough, over the last month and worsening over the last week. No significant prior history. Does not take medications as an outpatient. Notes chronic alcohol abuse for many years. He has not been feeling well for the last few weeks so last known alcohol was about 1-2 weeks ago. Prior drug abuse noted several years ago. No IV drug use. Upon presentation to the ER, EKG demonstrated sinus tachycardia with poor R wave progression and left axis deviation. Chest CTA with findings of interstitial pulm edema with b/l pleural effusions. No pulmonary embolus Hepatic congestion also noted. Hs troponin minimally elevated but flat in the 30's. Not indicative of ACS He notes severe epigastric pain with eating. Appetite has been poor. Experiencing band like tightness across the epigastric region frequently. Notes significant SOB with minimal exertion. 6 months ago he was able to ride his bike to work. Now he can't walk 50 feet without being dyspneic. He has had a cough for several months without improvement. Echo completed this morning with LVEF 15-20%. Significant RV dysfunction also noted. No prior echo for comparison. No known cardiac history. He does report being told he had a murmur as a child but this "resolved". Since admission, patient was treated with dose of IV lasix and notes frequent urination. Also treated with labetalol for uncontrolled HTN. At time of consult, patient resting in bed. Ongoing dyspnea with ambulation to restroom reported. No chest pain. No dizziness. Feels ongoing abdominal pain and epigastric tightness. No nausea or vomiting. Ongoing cough with orthopnea reported. Allergies Allergy/AdvReac Type Severity Reaction Status Date / Time walnut Allergy Unknown "WEIRD Unverified 07/17/23 01:39 FEELING IN MY TONGUE,INFLAMMATION" Home Medications Medication Instructions Recorded Confirmed Type No Known Home Medications 07/17/23 07/08/25 History Patient History Medical History (Updated 07/08/25 @ 11:37 by All Enamorado MD) HTN (hypertension) Surgical History (Updated 07/08/25 @ 10:06 by Rachel Sanchez PA-C) No pertinent past surgical history Family History (Updated 07/08/25 @ 10:07 by Rachel Sanchez PA-C) Father Alcoholism Grandmother (Maternal) Alcoholism Mother Stomach ulcer Social History (Updated 07/08/25 @ 10:07 by Rachel Sanchez PA-C) Smoking Status: Light tobacco smoker Tobacco Type: Cigarettes Hx Alcohol Use: Yes Alcohol type: beer and hard liquor Hx Substance Use: Yes Preferred Language: Bots[place] Communication Ability: Unable Market News Reporter Required: No Beliefs That Will Affect Care: None Current Living Situation: Alone Current Living Situation Comment: House with 2 guys one a landlord and then another roomate current occupational status: employed 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 [employer] Feels Safe at Home: Yes Assistive Devices: None Review of Systems Review of Systems: All systems reviewed & are unremarkable except as noted in HPI & below Physical Exam Constitutional: WD/WN, vitals as above average body habitus and + diaphoretic Neck: + thick neck Respiratory: + cough; + not able to speak in complete sentence (Conversational dyspnea) Auscultation: + diminished lung sounds Cardiovascular: Rate/Rhythm: regular rate and regular rhythm Heart Sounds: no murmur Vessels: + JVD Extremities: no edema Gastrointestinal (Abdomen): Inspection/Auscultation: abdomen normal to inspection; abdomen not distended Percussion/Palpation: abdomen soft; abdomen nontender Neurologic: PERRL, EOMI, accommodation nl, no face palsy, no dysarthria Results & Data Vital Signs (Past 12 Hours) Vital Signs Temp Pulse Pulse Resp BP BP Pulse Ox 07/08/25 11:50 93 H 138/102 H 07/08/25 11:31 36.9 C 110 H 26 H 140/113 H 98 07/08/25 10:21 108 H 07/08/25 10:03 105 H 19 07/08/25 10:03 155/118 H 07/08/25 10:00 107 H 22 07/08/25 09:42 103 H 12 07/08/25 09:00 137/105 H 07/08/25 09:00 137/105 H 07/08/25 09:00 93 H 99 07/08/25 08:52 147/118 H 07/08/25 08:51 103 H 25 H 100 07/08/25 08:30 105 H 28 H 98 07/08/25 08:00 98 H 23 99 07/08/25 08:00 159/123 H 07/08/25 07:30 98 H 21 99 07/08/25 07:00 144/109 H 07/08/25 07:00 106 H 20 97 07/08/25 07:00 105 H 18 144/109 H 98 07/08/25 05:19 124 H 07/08/25 05:00 117 H 19 98 07/08/25 05:00 36.9 C 118 H 16 162/122 H 95 07/08/25 04:58 36.6 C 117 H 19 151/112 H 98 O2 Del Method 07/08/25 11:50 07/08/25 11:31 Room Air 07/08/25 10:21 07/08/25 10:03 07/08/25 10:03 07/08/25 10:00 07/08/25 09:42 07/08/25 09:00 07/08/25 09:00 07/08/25 09:00 07/08/25 08:52 07/08/25 08:51 07/08/25 08:30 07/08/25 08:00 07/08/25 08:00 07/08/25 07:30 07/08/25 07:00 07/08/25 07:00 07/08/25 07:00 Room Air 07/08/25 05:19 07/08/25 05:00 Room Air 07/08/25 05:00 Room Air 07/08/25 04:58 Room Air Laboratory Results Cardiac Enzymes 07/08/25 07/08/25 07/08/25 Range/Units 05:17 07:15 09:52 AST 39 (13-39) U/L Troponin I High Sens 37.1 H 34.6 H 34.6 H (0-20) pg/ml B-Natriuretic Peptide (0-100) pg/ml 07/08/25 Range/Units 09:58 AST (13-39) U/L Troponin I High Sens (0-20) pg/ml B-Natriuretic Peptide 883 H (0-100) pg/ml Coagulation 07/08/25 07/08/25 Range/Units 09:52 09:58 PT 11.1 (9.0-12.0) Seconds B-Natriuretic Peptide 883 H (0-100) pg/ml Lipids 07/08/25 Range/Units 05:17 Triglycerides 119 (0-150) mg/dl Cholesterol 136 (0-200) mg/dl HDL Cholesterol 35 mg/dl Cholesterol/HDL Ratio 3.9 (0-5) CBC 07/08/25 Range/Units 05:17 WBC 7.59 (4.8-10.8) K/ul RBC 5.42 (4.70-6.10) M/uL Hgb 15.5 (14.0-18.0) g/dL Hct 47.6 (42.0-52.0) % Plt Count 316 (130-400) K/uL Neut # (Auto) 4.44 (1.40-6.50) K/uL Lymph # (Auto) 2.26 (1.20-3.40) K/uL [place] # (Auto) 0.70 H (0.11-0.59) K/uL Eos # (Auto) 0.08 (0.00-0.50) K/uL Baso # (Auto) 0.07 (0.00-0.20) K/uL Comprehensive Metabolic Panel 07/08/25 Range/Units 05:17 Sodium 141 (136-145) mmol/L Potassium 4.1 (3.5-5.1) mmol/L Chloride 109 H (98-107) mmol/L Carbon Dioxide 25 (21-32) mmol/L BUN 20 (6-23) mg/dl Creatinine 1.27 (0.6-1.4) mg/dl Glucose 76 (70-99(Fasting)) mg/dl Calcium 8.5 L (8.6-10.3) mg/dl AST 39 (13-39) U/L ALT 74 H (7-52) U/L Alkaline Phosphatase 40 (34-104) U/L Total Protein 5.6 L (6.0-8.3) gm/dl Albumin 3.6 (3.4-5.0) gm/dl Intake and Output 07/07/25 07/08/25 07/08/25 22:59 06:59 14:59 Intake Total 1000 / 1000 Balance 1000 / 1000 Intake: IV 1000 / 1000 Sodium Chloride 0.9% 1,000 ml @ 1000 / 1000 999 mls/hr IV .Q1H1M ONE Rx#: [id number] Other: Weight 126.4 kg Weight Measurement Method Chair Scale Diagnostic Findings Telemetry reviewed: Sinus tach and NSR, no arrhythmias EKG reviewed from admission: Sinus tach with LAD and poor R wave progression No prior EKG for comparison Echo reviewed: LV function is severely reduced at 15-20% Diastolic dysfunction, grade III consistent with markedly increased LA pressure RV systolic function is severely reduced LA is moderately dilated Mild Pulmonic valvular regurgitation Moderate MR Mild TR Chest X-Ray 07/08/25 05:09 EXAM: XR chest 1V portable CLINICAL HISTORY: Chest pain, nonspecific TECHNIQUE: An X-ray image of the chest is obtained in AP projection. COMPARISON: No prior studies are available for comparison. FINDINGS: Pulmonary Parenchyma: Lungs are clear bilaterally. No evidence of consolidation, collapse, or focal opacities. No pulmonary nodules are identified. No evidence of pleural effusion or pleural thickening. Heart and Mediastinum: Heart size and shape are normal. No mediastinal widening or masses. No hilar or mediastinal lymphadenopathy. Bony Thorax: Bony thorax appears intact without fractures or deformities. Soft Tissues: Soft tissues overlying the chest wall are unremarkable. IMPRESSION: Normal chest X-ray. No acute cardiopulmonary abnormalities are identified. Electronically signed by Jean Marie Sprague 07-08-2025 07:16 AM Abdomen/Pelvis CT 07/08/25 05:56 EXAM: CT abd pelvis IV con only CLINICAL HISTORY: Intractable epigastric pain. TECHNIQUE: Contrast-enhanced CT of the abdomen and pelvis was performed, with the following protocol: axial images with, and reconstructed coronal and sagittal images. Intravenous contrast 93 ml Optiray 320 was administered. One of the following dose reduction techniques was utilized for this exam: Automated exposure control, adjustment of the mA and/or kV according to patient size, and use of iterative reconstruction. COMPARISON: None. FINDINGS: Abdomen: Liver: Enlarged in size and heterogeneous in attenuation. No focal lesions, cysts, or masses were identified. Hepatic vasculature and biliary ducts are unremarkable. Gallbladder and Biliary System: The gallbladder is normal in size and shape. No gallstones were identified. Mild pericholecystic edema is seen. The common bile duct is normal in caliber without dilation. Pancreas: The pancreatic head, body, and tail are visualized and appear normal in size and density. No pancreatic masses or calcifications were noted. The pancreatic duct is not dilated. Spleen: Normal in size, shape, and density. No splenic lesions or masses were identified. Appendix: The appendix is normal in size without tomer-appendiceal fat stranding and without an appendicolith. No evidence of appendiceal abscess or perforation. Kidneys and Adrenal Glands: Both kidneys are normal in size, shape, and position. Cortical thickness is within normal limits. No renal calculi or hydronephrosis. Adrenal glands are unremarkable with no evidence of masses or hyperplasia. Pelvis: Urinary Bladder: Normal in contour and wall thickness. No intraluminal lesions identified. Prostate: Normal in size and contour. No focal lesions or masses identified. Seminal Vesicles: Normal in size and appearance. No abnormalities noted. Rectum and Sigmoid Colon: Normal wall thickness and no evidence of mass. Peritoneal and Retroperitoneal Structures: Mild pelvic free fluid is seen. No lymphadenopathy was noted. Bowel: The visualized bowel loops are normal in caliber and appearance. No evidence of bowel obstruction or wall thickening. Bones and Soft Tissues: Pelvic bones and soft tissues are unremarkable. No fractures or abnormal masses were identified. Diffuse subcutaneous edema and fat smudging are seen. Lower chest cuts show minimal right-sided pleural effusion, minimal pericardial effusion, and cardiomegaly. IMPRESSION: 1. Hepatomegaly with heterogeneous attenuation, possibly hepatitis vs congestive changes. 2. Mild ascites. 3. Minimal right-sided pleural effusion, minimal pericardial effusion, and cardiomegaly. 4. Diffuse subcutaneous edema and fat smudging are seen. 5. Clinical and lab parameters correlation is suggested. Electronically signed by Eulogio Ramsey 07-08-2025 07:53 AM Abdomen Ultrasound 07/08/25 08:55 ULTRASOUND RIGHT UPPER QUADRANT ABDOMEN CLINICAL HISTORY: Regular quadrant abdominal pain. Cough and belching. COMPARISON STUDY: Chest and abdominal CT scans dated 07/08/2025 TECHNIQUE: Real-time, grayscale, and color flow sonography of the right upper quadrant of the abdomen was performed. Images are reviewed in the transverse and longitudinal planes. FINDINGS: Liver: The liver is normal in size and echotexture. There is no intrahepatic biliary ductal dilatation. The main portal vein is patent. The portal triads appear echogenic, likely related to periportal edema seen by CT. There may also be gas within vascular structures. Gallbladder: The gallbladder wall is top normal in thickness measuring 3 mm and appears slightly edematous. No shadowing gallstones are seen. There is no pericholecystic fluid. A sonographic Martin's sign is reportedly absent. The common bile duct measures up to 0.8 cm in diameter. Pancreas: Visualized portions of the pancreatic head and body are normal in appearance. The splenic vein is patent. Right kidney: Survey images of the right kidney demonstrate normal size and echotexture. There is no hydronephrosis. Ascites: None. IMPRESSION: 1. No gallstones are identified and there is no sonographic evidence of acute cholecystitis. 2. The portal triads appear echogenic, likely related to periportal edema which was better seen on today's abdominal CT. Correlate clinically for evidence of a nonspecific hepatitis. 3. There may also be gas within hepatic vascular structures which was better appreciated on today's chest CT. 4. The gallbladder wall is top normal in thickness and appears mildly edematous, likely related to adjacent hepatocellular disease. ACT 112: Negative or not required by law. Electronically signed by: Calixto West M.D. 07/08/2025 12:12 PM Venous Doppler Study 07/08/25 08:55 BILATERAL LOWER EXTREMITY VENOUS DOPPLER CLINICAL HISTORY: Lower extremity edema. Elevated d-dimer. COMPARISON STUDY: No previous studies for comparison. TECHNIQUE: Sonography of the deep venous system of the bilateral lower extremities was performed. Compression and augmentation were evaluated. FINDINGS: The bilateral common femoral, superficial femoral and popliteal veins were compressible. Augmentation was normal. Flow was shown within the deep calf vessels. IMPRESSION: No evidence of deep venous thrombus within the bilateral lower extremities. ACT 112: Negative or not required by law. Electronically signed by: Garrett Wilkins M.D. 07/08/2025 11:38 AM Chest CTA 07/08/25 10:45 CT ANGIOGRAM OF THE CHEST CLINICAL HISTORY: Shortness of breath and cough. Evaluate for pulmonary embolus. COMPARISON STUDY: Chest CT July 17, 2023. Chest radiograph performed earlier today. CT of the abdomen and pelvis performed earlier today. TECHNIQUE: Following the IV administration of 120 cc of Optiray 320, CT steffen ogram of the chest was performed from the upper abdomen to the thoracic inlet utilizing the pulmonary embolus protocol. Images are reviewed in the axial, sagittal, and coronal planes. 3-D MIPS images are created and assessed. IV contrast was administered without complication. A dose lowering technique was utilized adhering to the principles of ALARA. CT DOSE: 1073.5 mGy.cm FINDINGS: No pulmonary emboli are identified. The heart is moderately enlarged. There is no pericardial effusion. No thoracic lymphadenopathy. There is no opacification of the thoracic aorta which is normal in caliber. There are trace bilateral pleural effusions. No pneumothorax. There is no consolidation to suggest pneumonia. Interlobular septal thickening is present. Visualized portions of the upper abdomen demonstrate reflux of contrast into the right and middle hepatic veins as well as the IVC. In addition, there is a small amount of branching gas within the left hepatic lobe. This is new since abdominal CT performed earlier today. IMPRESSION: 1. No pulmonary emboli identified. 2. Cardiomegaly with interstitial pulmonary edema and trace bilateral pleural effusions. Reflux of contrast into the IVC and middle and right hepatic veins. This raises the possibility of right heart dysfunction. 3. Small amount of branching gas within the left hepatic lobe. Although not definitive, this gas may be within the hepatic veins and represent reflux of gas related to IV insertion, particularly given reflux of contrast into the right and middle hepatic veins. However, if abdominal pain, a CT of the abdomen and pelvis is recommended even the portal venous gas could appear similar. ACT 112: Negative or not required by law. Electronically signed by: Garrett Wilkins M.D. 07/08/2025 12:00 PM Medications Administered Patient is a 39 year old male without significant past medical history other than chronic alcohol abuse and prior tobacco abuse admitted with SOB, volume overload, epigastric pain, abdominal bloating and found to have new onset biventricular heart failure with severely reduced LVEF at 15% with global hypokinesis and severe RV dysfunction as well. -Etiology uncertain but suggests non ischemic cardiomyopathy, possible alcohol induced. -Need to r/o infiltrative vs viral cardiomyopathy -No PE on chest CTA. -HS troponin only minimally elevated and flat in the 30's. Not indicative of acute ACS. -Given his abnormal LFT's and abnormal liver imaging - recommend viral panels including hepatitis, HIV -R/O amyloid with SPEP, UPEP ordered for 12/24 AM labs -Will need future cardiac MRI -Give one additional dose of IV furosemide 40 mg now -Monitor renal function and electrolytes -Monitor BP and HR. Avoid hypotension given severely reduced LVEF. -Slowly start GDMT for HFrEF as tolerated. -Will benefit from ANNIE/ARB or Entresto. Unfortunately given his lack of insurance, he may not be able to afford the Entresto. Will not initiate today, await renal function and BP response to diuretic and metoprolol. -HR's have improved with dose of labetalol earlier. Will plan to transition to metoprolol later today or tomorrow pending his BP response to diuretic. -Will likely need Lifevest on discharge as well. Unfortunately patient has no insurance. Discussed with nurse. Will need case management to assist with paperwork/insurance and med coverage/cost. Alcohol cessation strongly encouraged. Recommend also further work up of abnormal liver imaging - defer to hospitalist and/or GI. Case discussed with Dr. San. I spent a total of 60 minutes on the date of service in preparation, delivery, and documentation of the care provided to this patient, excluding any time spent in the performance of separately billed services. Yanci Ireland PA-C Department of Cardiology, [facility] This chart was completed in part utilizing Speech Voice Recognition Software. Grammatical errors, random word insertions, pronoun errors, and incomplete sentences are an occasional consequence of this system due to software limitations, ambient noise, and hardware issues. Any formal questions or concerns about the content, text, or information contained within the body of this dictation should be directly addressed to the provider for clarification. PG Care Time/CCT Total # of Minutes Spent Total Time Spent with Patient: Total time spent is greater than 50% in coordination of care (as documented) at patient's floor/unit and/or counseling patient: 60 minutes Coding Level of Care Code 05448 IN/OBS CONSULT LVL 5,80M
[2025-07-08 13:06] LABS: Iron 32 mcg/dl (35-175); Total Iron Binding Cap Calc 342 mcg/dl (250-450); Transferrin 244 mg/dl (200-360); Transferrin (FE) Percent Satur 9 % (20-50)
[2025-07-08] MEDS: METOPROLOL SUCC 25MG EXT REL TAB PO SCH (17:56)
--- NOTE | 2025-07-08 18:47 | Electrocardiogram Report ---
Test Reason : Blood Pressure : */* mmHG Vent. Rate : 124 BPM Atrial Rate : 124 BPM P-R Int : 138 ms QRS Dur : 90 ms QT Int : 330 ms P-R-T Axes : 65 -32 54 degrees QTcB Int : 474 ms Sinus tachycardia Possible Left atrial enlargement Left axis deviation Poor R wave progression, consider anterior AR vs. lead placement vs. LVH Abnormal ECG When compared with ECG of 17-Jul-2023 02:03, QRS axis Shifted left Confirmed by Hosea Singh ([id number]) on 07/08/2025 6:47:07 PM Referred By: REFERRED SELF Confirmed By: Hosea Singh
[2025-07-09 06:53] LABS: Hematocrit (blood only) 41.7 % (42.0-52.0); Hemoglobin 14.0 g/dL (14.0-18.0); Immature Granulocytes # (auto) 0.02 K/uL (0.01-0.20); Immature Granulocytes % (auto) 0.4 %; Mean Corpuscular Hemoglobin 29.2 pg (25.0-34.0); Mean Corpuscular Volume 87.1 fL (80.0-100.0); Platelet Count 274 K/uL (130-400); RDW Standard Deviation 45.8 fL (36.4-46.3); Red Blood Count 4.79 M/uL (4.70-6.10); White Blood Count 5.33 K/ul (4.8-10.8)
[2025-07-09 07:49] LABS: Alanine Aminotransferase 54.0 U/L (7-52); Albumin Globulin Ratio 1.7 (0.9-2); Albumin Level 3.0 gm/dl (3.4-5.0); Alkaline Phosphatase 35.0 U/L (34-104); Anion Gap 8.0 (3-11); Bilirubin,Total 0.6 mg/dl (0.2-1.0); Blood Urea Nitrogen 15.0 mg/dl (6-23); Calcium 8.3 mg/dl (8.6-10.3); Carbon Dioxide 26.0 mmol/L (21-32); Chloride 109.0 mmol/L (98-107); Creatinine Clr Calc Pharmacy 106.7 ml/min; Globulin 1.8 gm/dl (2.5-4.0); Glucose 82.0 mg/dl (70-99(Fasting)); Magnesium 2.0 mg/dl (1.7-2.4); Potassium 3.6 mmol/L (3.5-5.1); Sodium 143.0 mmol/L (136-145); Total Protein 4.8 gm/dl (6.0-8.3)
[2025-07-09] MEDS: FAMOTIDINE 20 MG TAB PO SCH (08:57)
[2025-07-09 09:37] LABS: Hep B Surface Ag with confirm Negative (Negative)
[2025-07-09 09:43] LABS: Hep C Ab Rflx HepCQuant RNA Negative (Negative)
--- NOTE | 2025-07-09 09:56 | Pre Anesthesia Assessment ---
Date of Service July 09, 2025 Pre Sedation Assessment Vital Signs Temp Pulse Pulse Pulse Resp BP BP 07/09/25 09:30 36.8 C 101 H 18 07/09/25 09:28 07/09/25 08:28 36.8 C 86 18 150/84 H 07/09/25 07:19 92 H 07/09/25 04:04 94 H 07/09/25 03:25 36.7 C 97 H 16 07/08/25 23:37 36.6 C 76 18 07/08/25 22:16 100 H 07/08/25 20:00 36.5 C 85 18 07/08/25 19:40 07/08/25 18:27 101 H 07/08/25 17:29 07/08/25 17:29 36.5 C 98 H 20 07/08/25 11:50 93 H 138/102 H 07/08/25 11:31 36.9 C 110 H 26 H 07/08/25 10:21 108 H 07/08/25 10:03 105 H 19 07/08/25 10:03 155/118 H 07/08/25 10:00 107 H 22 BP Pulse Ox O2 Del Method 07/09/25 09:30 159/110 H 100 Room Air 07/09/25 09:28 Room Air 07/09/25 08:28 96 Room Air 07/09/25 07:19 07/09/25 04:04 139/102 H 07/09/25 03:25 145/111 H 100 Room Air 07/08/25 23:37 141/93 H 97 Room Air 07/08/25 22:16 07/08/25 20:00 133/97 94 Room Air 07/08/25 19:40 Room Air 07/08/25 18:27 07/08/25 17:29 Room Air 07/08/25 17:29 121/98 93 Room Air 07/08/25 11:50 07/08/25 11:31 140/113 H 98 Room Air 07/08/25 10:21 07/08/25 10:03 07/08/25 10:03 07/08/25 10:00 Cardiovascular Additional Comments: Regular rhythm, tachycardic rate, soft systolic murmur. No edema. Respiratory normal respiratory effort, lungs clear to auscultation Pre-Sedation Airway Assessment Smoking Status: Light tobacco smoker Short, Thick Neck: No Thyromental Distance: < 3.5 Finger Breadths Oral Cavity: + WNL Mallampati Class: II ASA: ASA4 NPO Status Date of Last Intake of Fluids: 07/08/25 Time of Last Intake of Fluids: 23:00 Date of Last Intake of Solid Food: 07/08/25 Time of Last Intake of Solid Foods: 23:00 Notes The planned sedation has been discussed with the patient. Informed Consent was obtained. I have identified the patient, determined the appropriateness of sedation and have assessed the patient immediately prior to the procedure. All medicine(s) and interventions are by my order.
[2025-07-09] MEDS: MIDAZOLAM HCL 1 MG/ML 2ML VIAL ONE ×2 (10:21→12:30)
[2025-07-09] MEDS: HEPARIN (PORCINE) 1000 UNIT/ML 10 ML (CATH LAB USE ONLY) ONE (10:21)
[2025-07-09] MEDS: diphenhydrAMINE 50 MG/ML VIAL ONE (10:22)
[2025-07-09] MEDS: IODIXANOL (VISIPAQUE) 320 MG/ML 100ML IV ONE (10:22)
[2025-07-09] MEDS: OPTIRAY 350 ONE (10:22)
[2025-07-09] MEDS: niCARdipine 2,000 MCG/20 ML SYR ONE (10:22)
[2025-07-09] MEDS: NITROGLYCERIN/D5W 100MCG/ML 20ML SYR ONE (10:22)
--- NOTE | 2025-07-09 10:26 | Post Anesthesia Assessment ---
Date of Service July 09, 2025 Post Sedation Assessment Vital Signs Temp Pulse Pulse Pulse Resp BP BP 07/09/25 09:30 36.8 C 101 H 18 07/09/25 09:28 07/09/25 08:28 36.8 C 86 18 150/84 H 07/09/25 07:19 92 H 07/09/25 04:04 94 H 07/09/25 03:25 36.7 C 97 H 16 07/08/25 23:37 36.6 C 76 18 07/08/25 22:16 100 H 07/08/25 20:00 36.5 C 85 18 07/08/25 19:40 07/08/25 18:27 101 H 07/08/25 17:29 07/08/25 17:29 36.5 C 98 H 20 07/08/25 11:50 93 H 138/102 H 07/08/25 11:31 36.9 C 110 H 26 H BP Pulse Ox O2 Del Method 07/09/25 09:30 159/110 H 100 Room Air 07/09/25 09:28 Room Air 07/09/25 08:28 96 Room Air 07/09/25 07:19 07/09/25 04:04 139/102 H 07/09/25 03:25 145/111 H 100 Room Air 07/08/25 23:37 141/93 H 97 Room Air 07/08/25 22:16 07/08/25 20:00 133/97 94 Room Air 07/08/25 19:40 Room Air 07/08/25 18:27 07/08/25 17:29 Room Air 07/08/25 17:29 121/98 93 Room Air 07/08/25 11:50 07/08/25 11:31 140/113 H 98 Room Air Recovery Score Activity: Moves 4 extremities Respiration: Deep Breath/Cough Circulation: +/-20% PreAnes Value Consciousness: Fully Awake Oxygen Saturation: > 92% On Room Air Discharge Sedation Level of Care: Fast Track Phase II Post Sedation Plan On clinical assessment, the patient appears to have tolerated the sedation without complications. Patient is recovering as anticipated. Patient will continue to be monitored by nursing and may be discharged when sedation discharge criteria are met per below protocol. Upon Completions of procedure up to 15 minutes continue every 5 minute vital signs and the P.A.R. score; then discharge to a Phase I or Fast Track to Phase II per the following guidelines: * Discharge Patient to appropriate Phase II area if PAR is 8 or greater or return to pre- procedure baseline. The post - procedure orders will be as directed. * If PAR score is less than 8 or not return to pre-procedure baseline then patient will follow Phase I monitoring till PAR is reached for Phase II. The Phase I may be done in procedure room or may call to secure a Phase I area. * If naloxone or flumazenil are used for reversal, hold in Phase I for continued monitoring from when last reversal dose was given for a minimum of 60 minutes or longer pending the nurse and/or physician discretion of patient condition before discharge to Phase II. Please call the Sedation Physician to re-evaluate and complete post-note for discharge to Phase II area. Do NOT discharge from procedure sedation or Phase 1 until post- sedation evaluation note is complete by procedure /sedation MD Sedation Discharge Instructions to be given to the patient at discharge to home. [facility] Procedure Codes (Charges) Indication for Procedure Indication for procedure: NSTEMI
--- NOTE | 2025-07-09 11:17 | Cardiac Catheterization ---
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 Clinical evaluation leading to the procedure CAD Presenation: Sx unlikely to be ischemic Heart Failure: NYHA Class: CCS IV Cardiogenic Shock within 24 Hours: No Cardiac Arrest within 24 Hours: No Imaging Studies Past 6 Months: Yes (Echo) Stress Studies Past 6 Months: No Coronary Anatomy Dominant: Co-Dominant Left Main (% Stenosis): Normal LAD (% Stenosis): Normal D1 (% Stenosis): Normal D2 (% Stenosis): Normal D3 (% Stenosis): Normal Circumflex (% Stenosis): Normal OM1 (% Stenosis): Normal OM2 (% Stenosis): Normal OM3 (% Stenosis): Normal L PDA (% Stenosis): Normal RCA (% Stenosis): Normal R PDA (% Stenosis): Normal Ramus (% Stenosis): Normal Diagnostic Physicians Name: Dmitry Alcazar MD, PhD Closure Device Percutaneous Entry Location: Radial Closure Device: Radial Band Recommendations: Medical Therapy and/or Counseling Cardiac Cath Procedure Full Procedure Date July 09, 2025 Pre-Procedure Diagnosis Pre-Procedure Diagnosis: Non STEMI and Cardiomyopathy AUC Score AUC Score: 08 Post-Procedure Diagnosis Post-Procedure Diagnosis: Normal Coronary Arteries Procedure(s) Performed Procedure(s) Performed: 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 Sedated using IV Versed and Benadryl. Soft tissues of the right wrist were anesthetized using 2 mL of 1% Xylocaine. Right radial artery was accessed with a modified Seldinger technique and a 6 Irish radial artery glide sheath was placed. All catheters were advanced and exchanged over a 0.035 J-tip wire. Patient was provided anticoagulation with IV heparin and antispasmodics including nicardipine and nitroglycerin. Left coronary angiography in orthogonal views with a 5 [place] 4 diagnostic catheter. Right coronary angiography in orthogonal views with a 5 [place] 4 diagnostic catheter. Diagnostic catheters were removed. Radial artery sheath was removed. Hemostasis was obtained using a TR band. Patient remained hemodynamically stable and asymptomatic. He was returned to the recovery area in stable condition. This ended the case. Coronary angiography findings: TGI-akmfw-[id number] vessel trifurcating into LAD, circumflex, and ramus. No disease. [id number] and transapical. Gives several large septal branches and 3 diagonal branches. D1 is a medium without disease. D2 is large and branching without disease. D3 is medium without disease. The remainder of the LAD and its branches have no angiographically evident disease. LCx-this is large caliber and codominant. Travels in the AV groove giving to small obtuse marginal branches and then a large branching OM 3. AV groove continues is a smaller vessel and terminates as a small and short PDA. No angiographically evident disease in the circumflex or its branches. Ramus-this is medium caliber, branching, and terminates about nursing home to the apex. It has no disease. RCA-this is large caliber and codominant. Distally it becomes the PDA after a small posterolateral branch. There is no angiographically evident disease in the RCA or its branches. Summary: 1. Normal epicardial coronary arteries. 2. Continue medical management for dilated cardiomyopathy (nonischemic) per primary team. Hemodynamics Rest Ao:: 145/109 mmHg Final Ao: 138/116 mmHg LV: Not performed Recommendations Recommendations: Medical Therapy and/or Counseling Radiation Exposure (mGy) 741 mGy, fluoroscopy time 2.2 minutes Contrast (mls) 50 cc Anesthesia 2 mg Versed, 25 mg diphenhydramine IV. 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 Any exceptions are noted below. [facility] Card Cath Procedure Codes Cardiac Catheterization Procedure 1: Cardiovascular Cath Procedures: 04264 Coronaries Moderate Sedation Procedure 1: Sedation/Anesthesia: 51657 Mod Sedation by the same physician;Init15 Min Child Age 5 & Up (Initial 15 minutes, start time 1011, end time 1022) PG Care Time/CCT Total # of Minutes Spent Total Time Spent with Patient: Total time spent is greater than 50% in coordination of care (as documented) at patient's floor/unit and/or counseling patient:
[2025-07-09] MEDS ORDERED: LABETALOL HCL IV 5 MG/ML 20ML IV PRN (13:53)
--- NOTE | 2025-07-09 13:59 | Hospitalist Progress Note ---
Date of Service July 09, 2025 Assessment & Plan (1) Epigastric abdominal pain: (2) Edema: (3) Elevated troponin: (4) Shortness of breath: (5) HTN (hypertension): Plan 39M with no significant PMH other than alcohol and tobacco abuse presented 07/08 w/ c/o 4-5 weeks of worsening epigastric discomfort, "band like tightness," with associated SOB, new lower extremity swelling, and post prandial sx. He drinks several alcoholic beverages daily, but has not had any for the last week. Acute heart failure with reduced ejection fraction Right heart failure Likely demand ischemia Possible Nonischemic cardiomyopathy Elevated D-dimer, CTA chest and venous ble doppler neg for clot. Hypertension Patient comes in with shortness of breath and lower extremity swelling. See above. Troponin flat trend in 30s. LDL 77, BNP 883. CT chest negative for PE, positive for cardiomegaly and interstitial edema. Echo with EF of 15 to 20%, diastolic dysfunction, Grade III [restrictive pattern], LV and RV systolic function severely reduced, left atrium is moderately dilated. Status post cardiac cath 07/09: Normal epicardial coronary arteries. Cardiology on board, GDMT being optimized. Follow-up on immunology and serology studies. Continue with telemonitoring, likely will need LifeVest at the time of discharge. Monitor and replete electrolytes, low-sodium diet, fluid restriction of 1.5 L. Encouraged alcohol cessation. Transaminitis Concern for acid peptic disease Alcohol abuse: Encouraged cessation. 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 Patient complained of epigastric pain at presentation, CTAP with hepatomegaly, mild ascites. LFT minimally elevated likely congestive hepatopathy ISO right heart failure. Continue with PPI given h/o alc abuse, patient reports no abdominal pain now. LFT trending down, continue to monitor. US liver in a month time upon discharge. GI as OP. Prediabetes: A1c of 5.9, encouraged lifestyle modification and weight loss. Repeat A1c in 3 months, follow-up with PCP for long-term monitoring. DVT Px: hep sc. FULL CODE PCP: None Dispo: pcu tele Admission and Anticipated Discharge Date Admission Date: July 08, 2025 Subjective Patient was seen and examined at bedside. Patient was lying in bed, on room air, NAD, resting comfortably. Patient reports he feels tired, denies shortness of breath or chest pain or abdominal pain. Physical Exam Physical Exam: GENERAL: Alert and oriented x3. NAD, on RA. Obese class II. HEENT: No pallor, no icterus. Pupils equal, round and reactive to light. Oral mucosa moist. NECK: No JVD, no neck masses. HEART: S1 and S2 heard. Regular rate and rhythm. No murmur, no gallop. RESPIRATORY SYSTEM: Normal AP diameter. No accessory muscle use. No wheezing, bb crackles. ABDOMEN: Soft, bowel sounds present, nontender, no distention. CENTRAL NERVOUS SYSTEM: No facial droop. Speech is clear. Obeys simple commands. Moves extremities. EXTREMITIES: trace ble edema, no erythema seen. Results & Data Results & Data Vital Signs (Past 12 Hours) Vital Signs Temp Pulse Pulse Pulse Resp BP BP 07/09/25 13:15 36.6 C 91 H 18 152/109 H 07/09/25 12:45 36.5 C 84 18 165/104 H 07/09/25 12:16 36.7 C 85 20 165/119 H 07/09/25 11:45 88 18 160/118 H 07/09/25 11:30 88 18 152/118 H 07/09/25 11:15 88 18 165/127 H 07/09/25 11:00 88 18 160/117 H 07/09/25 10:45 97 H 18 145/108 H 159/110 H 07/09/25 09:45 97 H 18 145/108 H 159/110 H 07/09/25 09:30 36.8 C 101 H 18 159/110 H 07/09/25 09:28 07/09/25 08:28 36.8 C 86 18 150/84 H 07/09/25 07:19 92 H 07/09/25 04:04 94 H 139/102 H 07/09/25 03:25 36.7 C 97 H 16 145/111 H Pulse Ox O2 Del Method 07/09/25 13:15 99 Room Air 07/09/25 12:45 94 Room Air 07/09/25 12:16 96 Room Air 07/09/25 11:45 95 Room Air 07/09/25 11:30 95 Room Air 07/09/25 11:15 95 Room Air 07/09/25 11:00 99 Room Air 07/09/25 10:45 97 Room Air 07/09/25 09:45 97 Room Air 07/09/25 09:30 100 Room Air 07/09/25 09:28 Room Air 07/09/25 08:28 96 Room Air 07/09/25 07:19 07/09/25 04:04 07/09/25 03:25 100 Room Air
--- NOTE | 2025-07-09 18:45 | Cardiology Progress Note ---
Date of Service July 09, 2025 Assessment & Plan (1) Congestive heart failure: (2) Elevated troponin: (3) Pleural effusion: (4) HTN (hypertension): Plan 39 year old male who presented to [facility] with complaints of worsening SOB, fluid retention, epigastric pain, cough, over the last month and worsening over the last week. No significant prior history. Does not take medications as an outpatient. Notes chronic alcohol abuse for many years. He has not been feeling well for the last few weeks so last known alcohol was about 1-2 weeks ago. Prior drug abuse noted several years ago. No IV drug use. Upon presentation to the ER, EKG demonstrated sinus tachycardia with poor R wave progression and left axis deviation. Chest CTA with findings of interstitial pulm edema with b/l pleural effusions. No pulmonary embolus Hepatic congestion also noted. Hs troponin minimally elevated but flat in the 30's. Not indicative of ACS. He notes severe epigastric pain with eating. Appetite has been poor. Experiencing band like tightness across the epigastric region frequently. Notes significant SOB with minimal exertion. 6 months ago he was able to ride his bike to work. Now he can't walk 50 feet without being dyspneic. He has had a cough for several months without improvement. Echo completed this morning with LVEF 15-20%. Significant RV dysfunction also noted. S/P CARD CATH 07/09/25 - Normal coronaries IMP: Severe CM - nonischemic Acute HFrEF - improved Severe biventricular heart failure Alcoholism - watch for ETOH withdrawal Abnormal Troponin - not indicative of Type I NM Recommend: correct and f/u electrolytes f/u renal function GDMT for HFrEF as tolerated Increased metoprolol xl dose Increased Lisinopril dose adjust anti-HTN meds keeping systolic BP between 100-140 mmHg and heart rate between 60-100 BPM avoid hypovolemia keep patient euvolemic DVT prophylaxis 1.5 L / 24 hr fluid restriction strict I&Os salt restriction counseling ETOH cessation continue telemetry LIfeVest on discharge Admission and Anticipated Discharge Date Admission Date: July 08, 2025 Subjective Patient on exam is lying in bed in NAD; no c/o cp, sob, palpitations, dizziness, LOC, cough, fever, nausea, vomiting, abdominal pain, urinary or bowel problem problems, melena, hematemesis, hemoptysis, hematochezia, leg swelling s/p card cath earlier today -> normal coronaries Review of Systems Review of Systems: as per HPI Physical Exam Constitutional: WD/WN, vitals as above average body habitus Eyes: anicteric sclerae, pink conjunctiva Neck: + thick neck Respiratory: BLBS, no rales, no wheezing Cardiovascular: Rate/Rhythm: regular rate and regular rhythm Heart Sounds: no murmur Vessels: + JVD Extremities: no edema Gastrointestinal (Abdomen): Inspection/Auscultation: abdomen normal to inspection; abdomen not distended Percussion/Palpation: abdomen soft; abdomen nontender Neurologic: PERRL, EOMI, accommodation nl, no face palsy, no dysarthria Results & Data Vital Signs (Past 12 Hours) Vital Signs Vital Signs Temp 36.3 C L 07/09/25 16:01 Pulse 88 07/09/25 16:01 Resp 22 07/09/25 16:01 BP 146/106 H 07/09/25 16:01 Pulse Ox 100 07/09/25 16:01 O2 Del Method Room Air 07/09/25 16:01 Intake & Output 07/08/25 07/09/25 07/09/25 18:59 06:59 18:59 Intake Total 1000 / 1000 240 / 240 Output Total 400 / 400 Balance 1000 / 600 -400 / 600 240 / 240 Weight 123.7 kg Intake: IV 1000 / 1000 Sodium Chloride 0.9% 1,000 ml @ 1000 / 1000 999 mls/hr IV .Q1H1M ONE Rx#: [id number] Oral 240 / 240 Output: Urine 400 / 400 Other: Weight Measurement Method Standing Scale Temp Pulse Pulse Pulse Resp BP BP 07/09/25 16:01 36.3 C L 88 22 146/106 H 07/09/25 14:15 36.5 C 77 20 162/118 H 07/09/25 13:15 36.6 C 91 H 18 152/109 H 07/09/25 12:45 36.5 C 84 18 165/104 H 07/09/25 12:24 93 H 07/09/25 12:16 36.7 C 85 20 165/119 H 07/09/25 11:45 88 18 160/118 H 07/09/25 11:30 88 18 152/118 H 07/09/25 11:15 88 18 165/127 H 07/09/25 11:00 88 18 160/117 H 07/09/25 10:45 97 H 18 145/108 H 159/110 H 07/09/25 09:45 97 H 18 145/108 H 159/110 H 07/09/25 09:30 36.8 C 101 H 18 159/110 H 07/09/25 09:28 07/09/25 08:28 36.8 C 86 18 150/84 H 07/09/25 07:19 92 H Pulse Ox O2 Del Method 07/09/25 16:01 100 Room Air 07/09/25 14:15 100 Room Air 07/09/25 13:15 99 Room Air 07/09/25 12:45 94 Room Air 07/09/25 12:24 07/09/25 12:16 96 Room Air 07/09/25 11:45 95 Room Air 07/09/25 11:30 95 Room Air 07/09/25 11:15 95 Room Air 07/09/25 11:00 99 Room Air 07/09/25 10:45 97 Room Air 07/09/25 09:45 97 Room Air 07/09/25 09:30 100 Room Air 07/09/25 09:28 Room Air 07/09/25 08:28 96 Room Air 07/09/25 07:19 Laboratory Results Laboratory Results WBC 5.33 K/ul (4.8-10.8) 07/09/25 06:32 RBC 4.79 M/uL (4.70-6.10) 07/09/25 06:32 Hgb 14.0 g/dL (14.0-18.0) 07/09/25 06:32 Hct 41.7 % (42.0-52.0) L 07/09/25 06:32 MCV 87.1 fL (80.0-100.0) 07/09/25 06:32 MCH 29.2 pg (25.0-34.0) 07/09/25 06:32 MCHC 33.6 g/dL (32.0-36.0) 07/09/25 06:32 RDW Std Deviation 45.8 fL (36.4-46.3) 07/09/25 06:32 RDW Coeff of Jaswant 14.2 % (11.5-14.5) 07/09/25 06:32 Plt Count 274 K/uL (130-400) 07/09/25 06:32 MPV 10.2 fL (9.4-12.4) 07/09/25 06:32 Immature Gran % (Auto) 0.4 % 07/09/25 06:32 Neut % (Auto) 54.4 % 07/09/25 06:32 Lymph % (Auto) 33.4 % 07/09/25 06:32 Bucks % (Auto) 8.6 % 07/09/25 06:32 Eos % (Auto) 2.1 % 07/09/25 06:32 Baso % (Auto) 1.1 % 07/09/25 06:32 Neut # (Auto) 2.90 K/uL (1.40-6.50) 07/09/25 06:32 Lymph # (Auto) 1.78 K/uL (1.20-3.40) 07/09/25 06:32 Bucks # (Auto) 0.46 K/uL (0.11-0.59) 07/09/25 06:32 Eos # (Auto) 0.11 K/uL (0.00-0.50) 07/09/25 06:32 Baso # (Auto) 0.06 K/uL (0.00-0.20) 07/09/25 06:32 Immature Gran # (Auto) 0.02 K/uL (0.01-0.20) 07/09/25 06:32 PT 11.1 Seconds (9.0-12.0) 07/08/25 09:52 INR 1.1 (0.9-1.1) 07/08/25 09:52 D-Dimer 1690 ug/L FEU (0-500) H* 07/08/25 09:52 Sodium 143 mmol/L (136-145) 07/09/25 06:32 Potassium 3.6 mmol/L (3.5-5.1) 07/09/25 06:32 Chloride 109 mmol/L (98-107) H 07/09/25 06:32 Carbon Dioxide 26 mmol/L (21-32) 07/09/25 06:32 Anion Gap 8 (3-11) 07/09/25 06:32 BUN 15 mg/dl (6-23) 07/09/25 06:32 Creatinine 1.25 mg/dl (0.6-1.4) 07/09/25 06:32 Est Cr Clr Drug Dosing 106.7 ml/min 07/09/25 06:32 eGFR 74.65 07/09/25 06:32 BUN/Creatinine Ratio 12.0 (10-20) 07/09/25 06:32 Glucose 82 mg/dl (70-99(Fasting)) 07/09/25 06:32 Estimat Average Glucose 123 mg/dl 07/08/25 10:05 Hemoglobin A1c 5.9 % (4.5-5.6) H 07/08/25 10:05 Calcium 8.3 mg/dl (8.6-10.3) L 07/09/25 06:32 Magnesium 2.0 mg/dl (1.7-2.4) 07/09/25 06:32 Iron 32 mcg/dl (35-175) L 07/08/25 10:05 TIBC 342 mcg/dl (250-450) 07/08/25 10:05 Transferrin 244 mg/dl (200-360) 07/08/25 10:05 Transferrin % Sat 9 % (20-50) L 07/08/25 10:05 Total Bilirubin 0.6 mg/dl (0.2-1.0) 07/09/25 06:32 AST 24 U/L (13-39) 07/09/25 06:32 ALT 54 U/L (7-52) H 07/09/25 06:32 Alkaline Phosphatase 35 U/L (34-104) 07/09/25 06:32 Troponin I High Sens 34.6 pg/ml (0-20) H 07/08/25 09:52 B-Natriuretic Peptide 883 pg/ml (0-100) H 07/08/25 09:58 Total Protein 4.8 gm/dl (6.0-8.3) L 07/09/25 06:32 Albumin 3.0 gm/dl (3.4-5.0) L 07/09/25 06:32 Globulin 1.8 gm/dl (2.5-4.0) L 07/09/25 06:32 Albumin/Globulin Ratio 1.7 (0.9-2) 07/09/25 06:32 Triglycerides 119 mg/dl (0-150) 07/08/25 05:17 Cholesterol 136 mg/dl (0-200) 07/08/25 05:17 LDL Cholesterol, Calc 77 mg/dl 07/08/25 05:17 VLDL Cholesterol, Calc 24 mg/dl (0-30) 07/08/25 05:17 HDL Cholesterol 35 mg/dl 07/08/25 05:17 Cholesterol/HDL Ratio 3.9 (0-5) 07/08/25 05:17 Lipase 45 U/L (11-82) 07/08/25 05:17 TSH 2.290 uIu/ml (0.300-4.500) 07/08/25 05:17 Urine Color Yellow 07/08/25 10:10 Urine Appearance Clear (Clear) 07/08/25 10:10 Urine pH 5.0 (4.5-7.5) 07/08/25 10:10 Ur Specific Taylor 1.008 (1.000-1.030) 07/08/25 10:10 Urine Protein Negative (Negative) 07/08/25 10:10 Urine Glucose (UA) Negative (Negative) 07/08/25 10:10 Urine Ketones Negative (Negative) 07/08/25 10:10 Urine Blood Negative (Negative) 07/08/25 10:10 Urine Nitrite Negative (Negative) 07/08/25 10:10 Urine Bilirubin Negative (Negative) 07/08/25 10:10 Urine Urobilinogen Negative (Negative) 07/08/25 10:10 Ur Leukocyte Esterase Negative (Negative) 07/08/25 10:10 Ur Random Creatinine 7.8 mg/dl 07/08/25 10:10 U Random Total Protein < 4.0 mg/dl (0-11.9) 07/08/25 10:10 Protein/Creatinin Ratio TNP 07/08/25 10:10 Urine Comment 07/08/25 10:10 Acetaminophen < 3 ug/ml (10-30) L 07/09/25 06:32 Adenovirus (PCR) Not Detected (NotDetected) 07/08/25 10:16 B. pertussis DNA (PCR) Not Detected (NotDetected) 07/08/25 10:16 B.parapertussis DNA PCR Not Detected (NotDetected) 07/08/25 10:16 C. pneumoniae DNA (PCR) Not Detected (NotDetected) 07/08/25 10:16 Coronavirus OC43 (PCR) Not Detected (NotDetected) 07/08/25 10:16 Coronavirus HKU1 (PCR) Not Detected (NotDetected) 07/08/25 10:16 Coronavirus 229E (PCR) Not Detected (NotDetected) 07/08/25 10:16 SARS-CoV-2 (PCR) Not Detected (NotDetected) 07/08/25 10:16 Coronavirus NL63 (PCR) Not Detected (NotDetected) 07/08/25 10:16 Hep Bs Antigen Negative (Negative) 07/09/25 06:32 Hepatitis C Antibody Negative (Negative) 07/09/25 06:32 Human Metapneumovir PCR Not Detected (NotDetected) 07/08/25 10:16 Influenza Type A (PCR) Not Detected (NotDetected) 07/08/25 10:16 Influenza Type B (PCR) Not Detected (NotDetected) 07/08/25 10:16 M. pneumoniae (PCR) Not Detected (NotDetected) 07/08/25 10:16 Parainfluenza 1 (PCR) Not Detected (NotDetected) 07/08/25 10:16 Parainfluenza 2 (PCR) Not Detected (NotDetected) 07/08/25 10:16 Parainfluenza 3 (PCR) Not Detected (NotDetected) 07/08/25 10:16 Parainfluenza 4 (PCR) Not Detected (NotDetected) 07/08/25 10:16 RSV (PCR) Not Detected (NotDetected) 07/08/25 10:16 Entero/Rhino (PCR) Not Detected (NotDetected) 07/08/25 10:16 Impressions Chest X-Ray 07/08/25 05:09 EXAM: XR chest 1V portable CLINICAL HISTORY: Chest pain, nonspecific TECHNIQUE: An X-ray image of the chest is obtained in AP projection. COMPARISON: No prior studies are available for comparison. FINDINGS: Pulmonary Parenchyma: Lungs are clear bilaterally. No evidence of consolidation, collapse, or focal opacities. No pulmonary nodules are identified. No evidence of pleural effusion or pleural thickening. Heart and Mediastinum: Heart size and shape are normal. No mediastinal widening or masses. No hilar or mediastinal lymphadenopathy. Bony Thorax: Bony thorax appears intact without fractures or deformities. Soft Tissues: Soft tissues overlying the chest wall are unremarkable. IMPRESSION: Normal chest X-ray. No acute cardiopulmonary abnormalities are identified. Electronically signed by Jean Marie Sprague 07-08-2025 07:16 AM Abdomen/Pelvis CT 07/08/25 05:56 EXAM: CT abd pelvis IV con only CLINICAL HISTORY: Intractable epigastric pain. TECHNIQUE: Contrast-enhanced CT of the abdomen and pelvis was performed, with the following protocol: axial images with, and reconstructed coronal and sagittal images. Intravenous contrast 93 ml Optiray 320 was administered. One of the following dose reduction techniques was utilized for this exam: Automated exposure control, adjustment of the mA and/or kV according to patient size, and use of iterative reconstruction. COMPARISON: None. FINDINGS: Abdomen: Liver: Enlarged in size and heterogeneous in attenuation. No focal lesions, cysts, or masses were identified. Hepatic vasculature and biliary ducts are unremarkable. Gallbladder and Biliary System: The gallbladder is normal in size and shape. No gallstones were identified. Mild pericholecystic edema is seen. The common bile duct is normal in caliber without dilation. Pancreas: The pancreatic head, body, and tail are visualized and appear normal in size and density. No pancreatic masses or calcifications were noted. The pancreatic duct is not dilated. Spleen: Normal in size, shape, and density. No splenic lesions or masses were identified. Appendix: The appendix is normal in size without tomer-appendiceal fat stranding and without an appendicolith. No evidence of appendiceal abscess or perforation. Kidneys and Adrenal Glands: Both kidneys are normal in size, shape, and position. Cortical thickness is within normal limits. No renal calculi or hydronephrosis. Adrenal glands are unremarkable with no evidence of masses or hyperplasia. Pelvis: Urinary Bladder: Normal in contour and wall thickness. No intraluminal lesions identified. Prostate: Normal in size and contour. No focal lesions or masses identified. Seminal Vesicles: Normal in size and appearance. No abnormalities noted. Rectum and Sigmoid Colon: Normal wall thickness and no evidence of mass. Peritoneal and Retroperitoneal Structures: Mild pelvic free fluid is seen. No lymphadenopathy was noted. Bowel: The visualized bowel loops are normal in caliber and appearance. No evidence of bowel obstruction or wall thickening. Bones and Soft Tissues: Pelvic bones and soft tissues are unremarkable. No fractures or abnormal masses were identified. Diffuse subcutaneous edema and fat smudging are seen. Lower chest cuts show minimal right-sided pleural effusion, minimal pericardial effusion, and cardiomegaly. IMPRESSION: 1. Hepatomegaly with heterogeneous attenuation, possibly hepatitis vs congestive changes. 2. Mild ascites. 3. Minimal right-sided pleural effusion, minimal pericardial effusion, and cardiomegaly. 4. Diffuse subcutaneous edema and fat smudging are seen. 5. Clinical and lab parameters correlation is suggested. Electronically signed by Eulogio Ramsey 07-08-2025 07:53 AM Abdomen Ultrasound 07/08/25 08:55 ULTRASOUND RIGHT UPPER QUADRANT ABDOMEN CLINICAL HISTORY: Regular quadrant abdominal pain. Cough and belching. COMPARISON STUDY: Chest and abdominal CT scans dated 07/08/2025 TECHNIQUE: Real-time, grayscale, and color flow sonography of the right upper quadrant of the abdomen was performed. Images are reviewed in the transverse and longitudinal planes. FINDINGS: Liver: The liver is normal in size and echotexture. There is no intrahepatic biliary ductal dilatation. The main portal vein is patent. The portal triads appear echogenic, likely related to periportal edema seen by CT. There may also be gas within vascular structures. Gallbladder: The gallbladder wall is top normal in thickness measuring 3 mm and appears slightly edematous. No shadowing gallstones are seen. There is no pericholecystic fluid. A sonographic Martin's sign is reportedly absent. The common bile duct measures up to 0.8 cm in diameter. Pancreas: Visualized portions of the pancreatic head and body are normal in appearance. The splenic vein is patent. Right kidney: Survey images of the right kidney demonstrate normal size and echotexture. There is no hydronephrosis. Ascites: None. IMPRESSION: 1. No gallstones are identified and there is no sonographic evidence of acute cholecystitis. 2. The portal triads appear echogenic, likely related to periportal edema which was better seen on today's abdominal CT. Correlate clinically for evidence of a nonspecific hepatitis. 3. There may also be gas within hepatic vascular structures which was better appreciated on today's chest CT. 4. The gallbladder wall is top normal in thickness and appears mildly edematous, likely related to adjacent hepatocellular disease. ACT 112: Negative or not required by law. Electronically signed by: Calixto West M.D. 07/08/2025 12:12 PM Venous Doppler Study 07/08/25 08:55 BILATERAL LOWER EXTREMITY VENOUS DOPPLER CLINICAL HISTORY: Lower extremity edema. Elevated d-dimer. COMPARISON STUDY: No previous studies for comparison. TECHNIQUE: Sonography of the deep venous system of the bilateral lower extremities was performed. Compression and augmentation were evaluated. FINDINGS: The bilateral common femoral, superficial femoral and popliteal veins were compressible. Augmentation was normal. Flow was shown within the deep calf vessels. IMPRESSION: No evidence of deep venous thrombus within the bilateral lower extremities. ACT 112: Negative or not required by law. Electronically signed by: Garrett Wilkins M.D. 07/08/2025 11:38 AM Chest CTA 07/08/25 10:45 CT ANGIOGRAM OF THE CHEST CLINICAL HISTORY: Shortness of breath and cough. Evaluate for pulmonary embolus. COMPARISON STUDY: Chest CT July 17, 2023. Chest radiograph performed earlier today. CT of the abdomen and pelvis performed earlier today. TECHNIQUE: Following the IV administration of 120 cc of Optiray 320, CT angiogram of the chest was performed from the upper abdomen to the thoracic inlet utilizing the pulmonary embolus protocol. Images are reviewed in the a xial, sagittal, and coronal planes. 3-D MIPS images are created and assessed. IV contrast was administered without complication. A dose lowering technique was utilized adhering to the principles of ALARA. CT DOSE: 1073.5 mGy.cm FINDINGS: No pulmonary emboli are identified. The heart is moderately enlarged. There is no pericardial effusion. No thoracic lymphadenopathy. There is no opacification of the thoracic aorta which is normal in caliber. There are trace bilateral pleural effusions. No pneumothorax. There is no consolidation to suggest pneumonia. Interlobular septal thickening is present. Visualized portions of the upper abdomen demonstrate reflux of contrast into the right and middle hepatic veins as well as the IVC. In addition, there is a small amount of branching gas within the left hepatic lobe. This is new since abdominal CT performed earlier today. IMPRESSION: 1. No pulmonary emboli identified. 2. Cardiomegaly with interstitial pulmonary edema and trace bilateral pleural effusions. Reflux of contrast into the IVC and middle and right hepatic veins. This raises the possibility of right heart dysfunction. 3. Small amount of branching gas within the left hepatic lobe. Although not definitive, this gas may be within the hepatic veins and represent reflux of gas related to IV insertion, particularly given reflux of contrast into the right and middle hepatic veins. However, if abdominal pain, a CT of the abdomen and pelvis is recommended even the portal venous gas could appear similar. ACT 112: Negative or not required by law. Electronically signed by: Garrett Wilkins M.D. 07/08/2025 12:00 PM Diagnostic Findings Cardiac Enzymes 07/09/25 Range/Units 06:32 AST 24 (13-39) U/L CBC 07/09/25 Range/Units 06:32 WBC 5.33 (4.8-10.8) K/ul RBC 4.79 (4.70-6.10) M/uL Hgb 14.0 (14.0-18.0) g/dL Hct 41.7 L (42.0-52.0) % Plt Count 274 (130-400) K/uL Neut # (Auto) 2.90 (1.40-6.50) K/uL Lymph # (Auto) 1.78 (1.20-3.40) K/uL Bucks # (Auto) 0.46 (0.11-0.59) K/uL Eos # (Auto) 0.11 (0.00-0.50) K/uL Baso # (Auto) 0.06 (0.00-0.20) K/uL Comprehensive Metabolic Panel 07/09/25 Range/Units 06:32 Sodium 143 (136-145) mmol/L Potassium 3.6 (3.5-5.1) mmol/L Chloride 109 H (98-107) mmol/L Carbon Dioxide 26 (21-32) mmol/L BUN 15 (6-23) mg/dl Creatinine 1.25 (0.6-1.4) mg/dl Glucose 82 (70-99(Fasting)) mg/dl Calcium 8.3 L (8.6-10.3) mg/dl AST 24 (13-39) U/L ALT 54 H (7-52) U/L Alkaline Phosphatase 35 (34-104) U/L Total Protein 4.8 L (6.0-8.3) gm/dl Albumin 3.0 L (3.4-5.0) gm/dl Intake and Output 07/09/25 07/09/25 07/09/25 06:59 14:59 22:59 Intake Total 240 / 240 Output Total 400 / 400 Balance -400 / 600 240 / 240 Intake: Oral 240 / 240 Output: Urine 400 / 400 Medications Administered Home Medications Medication Instructions Recorded Confirmed Last Taken No Known Home Medications 07/17/23 07/08/25 Unknown Active Medications Generic Name Dose Route Start Last Admin Trade Name Romain MARCOS Reason Stop Dose Admin Famotidine 20 mg 07/09/25 09:00 07/09/25 08:57 Famotidine 20 Mg Tab PO 08/08/25 08:59 20 mg DAILY HEAVENLY Administration Lisinopril 5 mg 07/08/25 18:30 07/09/25 07:57 Lisinopril 5 Mg Tab PO 08/07/25 18:29 5 mg QAM HEAVENLY Administration Metoprolol Succinate 25 mg 07/08/25 15:00 07/09/25 07:56 Metoprolol Succ 25mg Ext Rel Tab PO 08/07/25 14:59 25 mg QAM HEAVENLY Administration Pantoprazole Sodium 40 mg 07/08/25 21:00 07/09/25 07:56 Pantoprazole 40 Mg Tab PO 08/07/25 20:59 40 mg BID HEAVENLY Administration PG Care Time/CCT Total # of Minutes Spent Total Time Spent with Patient: Total time spent is greater than 50% in coordination of care (as documented) at patient's floor/unit and/or counseling patient: Coding Level of Care Code 01193 SUB INP/OBS CARE 3/50MIN Diagnoses Congestive heart failure I50.9 Heart failure chronicity: acute Heart failure type: unspecified Elevated troponin R79.89 Pleural effusion J90 HTN (hypertension) I10 (1) Congestive heart failure Heart failure chronicity: acute Heart failure type: unspecified Qualified Code(s): I50.9 - Heart failure, unspecified
[2025-07-09] MEDS: METOPROLOL SUCC 25MG EXT REL TAB PO SCH (21:25)
[2025-07-10 07:20] LABS: Hematocrit (blood only) 42.7 % (42.0-52.0); Hemoglobin 14.1 g/dL (14.0-18.0); Mean Corpuscular Hemoglobin 28.6 pg (25.0-34.0); Mean Corpuscular Volume 86.6 fL (80.0-100.0); Platelet Count 293 K/uL (130-400); RDW Standard Deviation 45.1 fL (36.4-46.3); Red Blood Count 4.93 M/uL (4.70-6.10); White Blood Count 5.44 K/ul (4.8-10.8)
[2025-07-10 07:41] LABS: Anion Gap 9.0 (3-11); Blood Urea Nitrogen 14.0 mg/dl (6-23); Calcium 8.4 mg/dl (8.6-10.3); Carbon Dioxide 26.0 mmol/L (21-32); Chloride 108.0 mmol/L (98-107); Creatinine Clr Calc Pharmacy 108.4 ml/min; Glucose 88.0 mg/dl (70-99(Fasting)); Magnesium 2.0 mg/dl (1.7-2.4); Potassium 3.7 mmol/L (3.5-5.1); Sodium 143.0 mmol/L (136-145)
--- NOTE | 2025-07-10 12:52 | Hospitalist Progress Note ---
Date of Service July 10, 2025 Assessment & Plan (1) Epigastric abdominal pain: (2) Edema: (3) Elevated troponin: (4) Shortness of breath: (5) HTN (hypertension): Plan 39M with no significant PMH other than alcohol and tobacco abuse presented 07/08 w/ c/o 4-5 weeks of worsening epigastric discomfort, "band like tightness," with associated SOB, new lower extremity swelling, and post prandial sx. He drinks several alcoholic beverages daily, but has not had any for the last week. Acute heart failure with reduced ejection fraction Right heart failure Likely demand ischemia Possible Nonischemic cardiomyopathy Elevated D-dimer, CTA chest and venous ble doppler neg for clot. Hypertension Patient comes in with shortness of breath and lower extremity swelling. See above. Troponin flat trend in 30s. LDL 77, BNP 883. CT chest negative for PE, positive for cardiomegaly and interstitial edema. Echo with EF of 15 to 20%, diastolic dysfunction, Grade III [restrictive pattern], LV and RV systolic function severely reduced, left atrium is moderately dilated. Status post cardiac cath 07/09: Normal epicardial coronary arteries. Cardiology on board, GDMT being optimized. Follow-up on immunology and serology studies. Continue with telemonitoring, likely will need LifeVest at the time of discharge. Monitor and replete electrolytes, low-sodium diet, fluid restriction of 1.8 L. Encouraged alcohol cessation. Transaminitis Concern for acid peptic disease Alcohol abuse: Encouraged cessation. 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 Patient complained of epigastric pain at presentation, CTAP with hepatomegaly, mild ascites. LFT minimally elevated likely congestive hepatopathy ISO right heart failure. Continue with PPI given h/o alc abuse, patient reports no abdominal pain now. LFT trending down, continue to monitor. US liver in a month time upon discharge. GI as OP. Prediabetes: A1c of 5.9, encouraged lifestyle modification and weight loss. Repeat A1c in 3 months, follow-up with PCP for long-term monitoring. DVT Px: hep sc. FULL CODE PCP: None Dispo: pcu tele Admission and Anticipated Discharge Date Admission Date: July 08, 2025 Subjective Patient was seen and examined at bedside. Patient was lying in bed, on room air, NAD, resting comfortably. Patient denies any chest pain, reports some waterbrash, reports improvement in epigastric pain. Patient denies sore throat Counselled in depth regarding prediabetes/its management, HF and cardiomyopathy and need to f/u w/ cardio closely as OP. He voiced understanding. Physical Exam Physical Exam: GENERAL: Alert and oriented x3. NAD, on RA. Obese class II. HEENT: No pallor, no icterus. Pupils equal, round and reactive to light. Oral mucosa moist. NECK: No JVD, no neck masses. HEART: S1 and S2 heard. Regular rate and rhythm. No murmur, no gallop. RESPIRATORY SYSTEM: Normal AP diameter. No accessory muscle use. No wheezing, bb crackles. ABDOMEN: Soft, bowel sounds present, nontender, no distention. CENTRAL NERVOUS SYSTEM: No facial droop. Speech is clear. Obeys simple commands. Moves extremities. EXTREMITIES: trace ble edema, no erythema seen. Results & Data Results & Data Vital Signs (Past 12 Hours) Vital Signs Temp Pulse Resp BP Pulse Ox O2 Del Method 07/10/25 12:15 36.5 C 88 20 158/117 H 99 Room Air 07/10/25 08:39 Room Air 07/10/25 08:25 36.3 C L 86 22 162/112 H 97 Room Air 07/10/25 04:15 36.7 C 91 H 17 160/109 H 100 Room Air
[2025-07-10] MEDS: SPIRONOLACTONE 12.5 MG TAB PO STA ×2 (13:15→17:49)
--- NOTE | 2025-07-10 17:23 | Cardiology Progress Note ---
Date of Service July 10, 2025 Assessment & Plan (1) Congestive heart failure: (2) Elevated troponin: (3) Pleural effusion: (4) HTN (hypertension): Plan 39 year old male who presented to [facility] with complaints of worsening SOB, fluid retention, epigastric pain, cough, over the last month and worsening over the last week. No significant prior history. Does not take medications as an outpatient. Notes chronic alcohol abuse for many years. He has not been feeling well for the last few weeks so last known alcohol was about 1-2 weeks ago. Prior drug abuse noted several years ago. No IV drug use. Upon presentation to the ER, EKG demonstrated sinus tachycardia with poor R wave progression and left axis deviation. Chest CTA with findings of interstitial pulm edema with b/l pleural effusions. No pulmonary embolus Hepatic congestion also noted. Hs troponin minimally elevated but flat in the 30's. Not indicative of ACS. He notes severe epigastric pain with eating. Appetite has been poor. Experiencing band like tightness across the epigastric region frequently. Notes significant SOB with minimal exertion. 6 months ago he was able to ride his bike to work. Now he can't walk 50 feet without being dyspneic. He has had a cough for several months without improvement. Echo completed this morning with LVEF 15-20%. Significant RV dysfunction also noted. S/P CARD CATH 07/09/25 - Normal coronaries IMP: Severe CM - nonischemic Acute HFrEF - improved Severe biventricular heart failure Alcoholism - watch for ETOH withdrawal Abnormal Troponin - not indicative of Type I CO Recommend: correct and f/u electrolytes f/u renal function GDMT for HFrEF as tolerated Increased metoprolol xl dose Increased Lisinopril dose started Aldactone 12.5mg po daily adjust anti-HTN meds keeping systolic BP between 100-140 mmHg and heart rate between 60-100 BPM avoid hypovolemia keep patient euvolemic DVT prophylaxis 1.5 L / 24 hr fluid restriction strict I&Os salt restriction counseling ETOH cessation continue telemetry LIfeVest on discharge Admission and Anticipated Discharge Date Admission Date: July 08, 2025 Subjective Patient on exam is lying in bed supine with one pillow in NAD; no c/o cp, sob, palpitations, dizziness, LOC, cough, fever, nausea, vomiting, abdominal pain, urinary or bowel problem problems, melena, hematemesis, hemoptysis, hematochezia, leg swelling; feels better Review of Systems Review of Systems: as per HPI Physical Exam Constitutional: WD/WN, vitals as above average body habitus Eyes: anicteric sclerae, pink conjunctiva Neck: + thick neck Respiratory: BLBS, no rales, no wheezing Cardiovascular: Rate/Rhythm: regular rate and regular rhythm Heart Sounds: no murmur Vessels: + JVD Extremities: no edema Gastrointestinal (Abdomen): Inspection/Auscultation: abdomen normal to inspec tion; abdomen not distended Percussion/Palpation: abdomen soft; abdomen nontender Neurologic: PERRL, EOMI, accommodation nl, no face palsy, no dysarthria Results & Data Vital Signs (Past 12 Hours) Vital Signs Temp 36.6 C 07/10/25 16:38 Pulse 80 07/10/25 17:18 Resp 22 07/10/25 16:38 BP 153/111 H 07/10/25 16:38 Pulse Ox 96 07/10/25 16:38 O2 Del Method Room Air 07/10/25 16:38 Intake & Output 07/09/25 07/10/25 07/10/25 18:59 06:59 18:59 Intake Total 240 / 240 600 / 600 Output Total 500 / 500 Balance 240 / -260 -500 / -260 600 / 600 Intake: Oral 240 / 240 600 / 600 Output: Urine 500 / 500 Vital Signs Temp Pulse Resp BP Pulse Ox O2 Del Method 07/10/25 16:38 36.6 C 90 22 153/111 H 96 Room Air 07/10/25 12:15 36.5 C 88 20 158/117 H 99 Room Air 07/10/25 08:39 Room Air 07/10/25 08:25 36.3 C L 86 22 162/112 H 97 Room Air Laboratory Results Laboratory Results WBC 5.44 K/ul (4.8-10.8) 07/10/25 06:45 RBC 4.93 M/uL (4.70-6.10) 07/10/25 06:45 Hgb 14.1 g/dL (14.0-18.0) 07/10/25 06:45 Hct 42.7 % (42.0-52.0) 07/10/25 06:45 MCV 86.6 fL (80.0-100.0) 07/10/25 06:45 MCH 28.6 pg (25.0-34.0) 07/10/25 06:45 MCHC 33.0 g/dL (32.0-36.0) 07/10/25 06:45 RDW Std Deviation 45.1 fL (36.4-46.3) 07/10/25 06:45 RDW Coeff of Jaswant 14.4 % (11.5-14.5) 07/10/25 06:45 Plt Count 293 K/uL (130-400) 07/10/25 06:45 MPV 10.3 fL (9.4-12.4) 07/10/25 06:45 Immature Gran % (Auto) 0.4 % 07/09/25 06:32 Neut % (Auto) 54.4 % 07/09/25 06:32 Lymph % (Auto) 33.4 % 07/09/25 06:32 [place] % (Auto) 8.6 % 07/09/25 06:32 Eos % (Auto) 2.1 % 07/09/25 06:32 Baso % (Auto) 1.1 % 07/09/25 06:32 Neut # (Auto) 2.90 K/uL (1.40-6.50) 07/09/25 06:32 Lymph # (Auto) 1.78 K/uL (1.20-3.40) 07/09/25 06:32 [place] # (Auto) 0.46 K/uL (0.11-0.59) 07/09/25 06:32 Eos # (Auto) 0.11 K/uL (0.00-0.50) 07/09/25 06:32 Baso # (Auto) 0.06 K/uL (0.00-0.20) 07/09/25 06:32 Immature Gran # (Auto) 0.02 K/uL (0.01-0.20) 07/09/25 06:32 PT 11.1 Seconds (9.0-12.0) 07/08/25 09:52 INR 1.1 (0.9-1.1) 07/08/25 09:52 D-Dimer 1690 ug/L FEU (0-500) H* 07/08/25 09:52 Sodium 143 mmol/L (136-145) 07/10/25 06:45 Potassium 3.7 mmol/L (3.5-5.1) 07/10/25 06:45 Chloride 108 mmol/L (98-107) H 07/10/25 06:45 Carbon Dioxide 26 mmol/L (21-32) 07/10/25 06:45 Anion Gap 9 (3-11) 07/10/25 06:45 BUN 14 mg/dl (6-23) 07/10/25 06:45 Creatinine 1.23 mg/dl (0.6-1.4) 07/10/25 06:45 Est Cr Clr Drug Dosing 108.4 ml/min 07/10/25 06:45 eGFR 76.11 07/10/25 06:45 BUN/Creatinine Ratio 11.4 (10-20) 07/10/25 06:45 Glucose 88 mg/dl (70-99(Fasting)) 07/10/25 06:45 Estimat Average Glucose 123 mg/dl 07/08/25 10:05 Hemoglobin A1c 5.9 % (4.5-5.6) H 07/08/25 10:05 Calcium 8.4 mg/dl (8.6-10.3) L 07/10/25 06:45 Phosphorus 4.2 mg/dl (2.5-4.9) 07/10/25 06:45 Magnesium 2.0 mg/dl (1.7-2.4) 07/10/25 06:45 Iron 32 mcg/dl (35-175) L 07/08/25 10:05 TIBC 342 mcg/dl (250-450) 07/08/25 10:05 Transferrin 244 mg/dl (200-360) 07/08/25 10:05 Transferrin % Sat 9 % (20-50) L 07/08/25 10:05 Total Bilirubin 0.6 mg/dl (0.2-1.0) 07/09/25 06:32 AST 24 U/L (13-39) 07/09/25 06:32 ALT 54 U/L (7-52) H 07/09/25 06:32 Alkaline Phosphatase 35 U/L (34-104) 07/09/25 06:32 Troponin I High Sens 34.6 pg/ml (0-20) H 07/08/25 09:52 B-Natriuretic Peptide 883 pg/ml (0-100) H 07/08/25 09:58 Total Protein 4.8 gm/dl (6.0-8.3) L 07/09/25 06:32 Albumin 3.0 gm/dl (3.4-5.0) L 07/09/25 06:32 Globulin 1.8 gm/dl (2.5-4.0) L 07/09/25 06:32 Albumin/Globulin Ratio 1.7 (0.9-2) 07/09/25 06:32 Triglycerides 119 mg/dl (0-150) 07/08/25 05:17 Cholesterol 136 mg/dl (0-200) 07/08/25 05:17 LDL Cholesterol, Calc 77 mg/dl 07/08/25 05:17 VLDL Cholesterol, Calc 24 mg/dl (0-30) 07/08/25 05:17 HDL Cholesterol 35 mg/dl 07/08/25 05:17 Cholesterol/HDL Ratio 3.9 (0-5) 07/08/25 05:17 Lipase 45 U/L (11-82) 07/08/25 05:17 TSH 2.290 uIu/ml (0.300-4.500) 07/08/25 05:17 Urine Color Yellow 07/08/25 10:10 Urine Appearance Clear (Clear) 07/08/25 10:10 Urine pH 5.0 (4.5-7.5) 07/08/25 10:10 Ur Specific [place] 1.008 (1.000-1.030) 07/08/25 10:10 Urine Protein Negative (Negative) 07/08/25 10:10 Urine Glucose (UA) Negative (Negative) 07/08/25 10:10 Urine Ketones Negative (Negative) 07/08/25 10:10 Urine Blood Negative (Negative) 07/08/25 10:10 Urine Nitrite Negative (Negative) 07/08/25 10:10 Urine Bilirubin Negative (Negative) 07/08/25 10:10 Urine Urobilinogen Negative (Negative) 07/08/25 10:10 Ur Leukocyte Esterase Negative (Negative) 07/08/25 10:10 Ur Random Creatinine 7.8 mg/dl 07/08/25 10:10 U Random Total Protein < 4.0 mg/dl (0-11.9) 07/08/25 10:10 Protein/Creatinin Ratio TNP 07/08/25 10:10 Urine Comment 07/08/25 10:10 Acetaminophen < 3 ug/ml (10-30) L 07/09/25 06:32 Adenovirus (PCR) Not Detected (NotDetected) 07/08/25 10:16 B. pertussis DNA (PCR) Not Detected (NotDetected) 07/08/25 10:16 B.parapertussis DNA PCR Not Detected (NotDetected) 07/08/25 10:16 C. pneumoniae DNA (PCR) Not Detected (NotDetected) 07/08/25 10:16 Coronavirus OC43 (PCR) Not Detected (NotDetected) 07/08/25 10:16 Coronavirus HKU1 (PCR) Not Detected (NotDetected) 07/08/25 10:16 Coronavirus 229E (PCR) Not Detected (NotDetected) 07/08/25 10:16 SARS-CoV-2 (PCR) Not Detected (NotDetected) 07/08/25 10:16 Coronavirus NL63 (PCR) Not Detected (NotDetected) 07/08/25 10:16 Hep Bs Antigen Negative (Negative) 07/09/25 06:32 Hepatitis C Antibody Negative (Negative) 07/09/25 06:32 Human Metapneumovir PCR Not Detected (NotDetected) 07/08/25 10:16 Influenza Type A (PCR) Not Detected (NotDetected) 07/08/25 10:16 Influenza Type B (PCR) Not Detected (NotDetected) 07/08/25 10:16 M. pneumoniae (PCR) Not Detected (NotDetected) 07/08/25 10:16 Parainfluenza 1 (PCR) Not Detected (NotDetected) 07/08/25 10:16 Parainfluenza 2 (PCR) Not Detected (NotDetected) 07/08/25 10:16 Parainfluenza 3 (PCR) Not Detected (NotDetected) 07/08/25 10:16 Parainfluenza 4 (PCR) Not Detected (NotDetected) 07/08/25 10:16 RSV (PCR) Not Detected (NotDetected) 07/08/25 10:16 Entero/Rhino (PCR) Not Detected (NotDetected) 07/08/25 10:16 Impressions Chest X-Ray 07/08/25 05:09 EXAM: XR chest 1V portable CLINICAL HISTORY: Chest pain, nonspecific TECHNIQUE: An X-ray image of the chest is obtained in AP projection. COMPARISON: No prior studies are available for comparison. FINDINGS: Pulmonary Parenchyma: Lungs are clear bilaterally. No evidence of consolidation, collapse, or focal opacities. No pulmonary nodules are identified. No evidence of pleural effusion or pleural thickening. Heart and Mediastinum: Heart size and shape are normal. No mediastinal widening or masses. No hilar or mediastinal lymphadenopathy. Bony Thorax: Bony thorax appears intact without fractures or deformities. Soft Tissues: Soft tissues overlying the chest wall are unremarkable. IMPRESSION: Normal chest X-ray. No acute cardiopulmonary abnormalities are identified. Electronically signed by Jean Marie Sprague 07-08-2025 07:16 AM Abdomen/Pelvis CT 07/08/25 05:56 EXAM: CT abd pelvis IV con only CLINICAL HISTORY: Intractable epigastric pain. TECHNIQUE: Contrast-enhanced CT of the abdomen and pelvis was performed, with the following protocol: axial images with, and reconstructed coronal and sagittal images. Intravenous contrast 93 ml Optiray 320 was administered. One of the following dose reduction techniques was utilized for this exam: Automated exposure control, adjustment of the mA and/or kV according to patient size, and use of iterative reconstruction. COMPARISON: None. FINDINGS: Abdomen: Liver: Enlarged in size and heterogeneous in attenuation. No focal lesions, cysts, or masses were identified. Hepatic vasculature and biliary ducts are unremarkable. Gallbladder and Biliary System: The gallbladder is normal in size and shape. No gallstones were identified. Mild pericholecystic edema is seen. The common bile duct is normal in caliber without dilation. Pancreas: The pancreatic head, body, and tail are visualized and appear normal in size and density. No pancreatic masses or calcifications were noted. The pancreatic duct is not dilated. Spleen: Normal in size, shape, and density. No splenic lesions or masses were identified. Appendix: The appendix is normal in size without tomer-appendiceal fat stranding and without an appendicolith. No evidence of appendiceal abscess or perforation. Kidneys and Adrenal Glands: Both kidneys are normal in size, shape, and position. Cortical thickness is within normal limits. No renal calculi or hydronephrosis. Adrenal glands are unremarkable with no evidence of masses or hyperplasia. Pelvis: Urinary Bladder: Normal in contour and wall thickness. No intraluminal lesions identified. Prostate: Normal in size and contour. No focal lesions or masses identified. Seminal Vesicles: Normal in size and appearance. No abnormalities noted. Rectum and Sigmoid Colon: Normal wall thickness and no evidence of mass. Peritoneal and Retroperitoneal Structures: Mild pelvic free fluid is seen. No lymphadenopathy was noted. Bowel: The visualized bowel loops are normal in caliber and appearance. No evidence of bowel obstruction or wall thickening. Bones and Soft Tissues: Pelvic bones and soft tissues are unremarkable. No fractures or abnormal masses were identified. Diffuse subcutaneous edema and fat smudging are seen. Lower chest cuts show minimal right-sided pleural effusion, minimal pericardial effusion, and cardiomegaly. IMPRESSION: 1. Hepatomegaly with heterogeneous attenuation, possibly hepatitis vs congestive changes. 2. Mild ascites. 3. Minimal right-sided pleural effusion, minimal pericardial effusion, and cardiomegaly. 4. Diffuse subcutaneous edema and fat smudging are seen. 5. Clinical and lab parameters correlation is suggested. Electronically signed by Eulogio Ramsey 07-08-2025 07:53 AM Abdomen Ultrasound 07/08/25 08:55 ULTRASOUND RIGHT UPPER QUADRANT ABDOMEN CLINICAL HISTORY: Regular quadrant abdominal pain. Cough and belching. COMPARISON STUDY: Chest and abdominal CT scans dated 07/08/2025 TECHNIQUE: Real-time, grayscale, and color flow sonography of the right upper quadrant of the abdomen was performed. Images are reviewed in the transverse and longitudinal planes. FINDINGS: Liver: The liver is normal in size and echotexture. There is no intrahepatic biliary ductal dilatation. The main portal vein is patent. The portal triads appear echogenic, likely related to periportal edema seen by CT. There may also be gas within vascular structures. Gallbladder: The gallbladder wall is top normal in thickness measuring 3 mm and appears slightly edematous. No shadowing gallstones are seen. There is no pericholecystic fluid. A sonographic Martin's sign is reportedly absent. The common bile duct measures up to 0.8 cm in diameter. Pancreas: Visualized portions of the pancreatic head and body are normal in appearance. The splenic vein is patent. Right kidney: Survey images of the right kidney demonstrate normal size and echotexture. There is no hydronephrosis. Ascites: None. IMPRESSION: 1. No gallstones are identified and there is no sonographic evidence of acute cholecystitis. 2. The portal triads appear echogenic, likely related to periportal edema which was better seen on today's abdominal CT. Correlate clinically for evidence of a nonspecific hepatitis. 3. There may also be gas within hepatic vascular structures which was better appreciated on today's chest CT. 4. The gallbladder wall is top normal in thickness and appears mildly edematous, likely related to adjacent hepatocellular disease. ACT 112: Negative or not required by law. Electronically signed by: Calixto West M.D. 07/08/2025 12:12 PM Venous Doppler Study 07/08/25 08:55 BILATERAL LOWER EXTREMITY VENOUS DOPPLER CLINICAL HISTORY: Lower extremity edema. Elevated d-dimer. COMPARISON STUDY: No previous studies for comparison. TECHNIQUE: Sonography of the deep venous system of the bilateral lower extremities was performed. Compression and augmentation were evaluated. FINDINGS: The bilateral common femoral, superficial femoral and popliteal veins were compressible. Augmentation was normal. Flow was shown within the deep calf vessels. IMPRESSION: No evidence of deep venous thrombus within the bilateral lower extremities. ACT 112: Negative or not required by law. Electronically signed by: Garrett Wilkins M.D. 07/08/2025 11:38 AM Chest CTA 07/08/25 10:45 CT ANGIOGRAM OF THE CHEST CLINICAL HISTORY: Shortness of breath and cough. Evaluate for pulmonary embolus. COMPARISON STUDY: Chest CT July 17, 2023. Chest radiograph performed earlier today. CT of the abdomen and pelvis performed earlier today. TECHNIQUE: Following the IV administration of 120 cc of Optiray 320, CT angiogram of the chest was performed from the upper abdomen to the thoracic inlet utilizing the pulmonary embolus protocol. Images are reviewed in the axial, sagittal, and coronal planes. 3-D MIPS images are created and assessed. IV contrast was administered without complication. A dose lowering technique was utilized adhering to the principles of ALARA. CT DOSE: 1073.5 mGy.cm FINDINGS: No pulmonary emboli are identified. The heart is moderately enlarged. There is no pericardial effusion. No thoracic lymphadenopathy. There is no opacification of the thoracic aorta which is normal in caliber. There are trace bilateral pleural effusions. No pneumothorax. There is no consolidation to suggest pneumonia. Interlobular septal thickening is present. Visualized portions of the upper abdomen demonstrate reflux of contrast into the right and middle hepatic veins as well as the IVC. In addition, there is a small amount of branching gas within the left hepatic lobe. This is new since abdominal CT performed earlier today. IMPRESSION: 1. No pulmonary emboli identified. 2. Cardiomegaly with interstitial pulmonary edema and trace bilateral pleural effusions. Reflux of contrast into the IVC and middle and right hepatic veins. This raises the possibility of right heart dysfunction. 3. Small amount of branching gas within the left hepatic lobe. Although not definitive, this gas may be within the hepatic veins and represent reflux of gas related to IV insertion, particularly given reflux of contrast into the right and middle hepatic veins. However, if abdominal pain, a CT of the abdomen and pelvis is recommended even the portal venous gas could appear similar. ACT 112: Negative or not required by law. Electronically signed by: Garrett Wilkins M.D. 07/08/2025 12:00 PM Diagnostic Findings CBC 07/10/25 Range/Units 06:45 WBC 5.44 (4.8-10.8) K/ul RBC 4.93 (4.70-6.10) M/uL Hgb 14.1 (14.0-18.0) g/dL Hct 42.7 (42.0-52.0) % Plt Count 293 (130-400) K/uL Comprehensive Metabolic Panel 07/10/25 Range/Units 06:45 Sodium 143 (136-145) mmol/L Potassium 3.7 (3.5-5.1) mmol/L Chloride 108 H (98-107) mmol/L Carbon Dioxide 26 (21-32) mmol/L BUN 14 (6-23) mg/dl Creatinine 1.23 (0.6-1.4) mg/dl Glucose 88 (70-99(Fasting)) mg/dl Calcium 8.4 L (8.6-10.3) mg/dl Intake and Output 07/10/25 07/10/25 07/10/25 06:59 14:59 22:59 Intake Total 600 / 600 Output Total 200 / 500 Balance -200 / -260 600 / 600 Intake: Oral 600 / 600 Output: Urine 200 / 500 Medications Administered Home Medications Medication Instructions Recorded Confirmed Last Taken No Known Home Medications 07/17/23 07/08/25 Unknown Active Medications Generic Name Dose Route Start Last Admin Trade Name Freq PRN Reason Stop Dose Admin Carvedilol 6.25 mg 07/10/25 17:00 07/10/25 17:07 Carvedilol 6.25 Mg Tab PO 08/09/25 16:59 6.25 mg BIDM HEAVENLY Administration Famotidine 20 mg 07/09/25 09:00 07/10/25 08:39 Famotidine 20 Mg Tab PO 08/08/25 08:59 20 mg DAILY HEAVENLY Administration Pantoprazole Sodium 40 mg 07/08/25 21:00 07/10/25 08:39 Pantoprazole 40 Mg Tab PO 08/07/25 20:59 40 mg BID HEAVENLY Administration PG Care Time/CCT Total # of Minutes Spent Total Time Spent with Patient: Total time spent is greater than 50% in coordination of care (as documented) at patient's floor/unit and/or counseling patient: Coding Level of Care Code 45287 SUB INP/OBS CARE 350MIN Diagnoses Congestive heart failure I50.9 Heart failure chronicity: acute Heart failure type: unspecified Elevated troponin R79.89 Pleural effusion J90 HTN (hypertension) I10 (1) Congestive heart failure Heart failure chronicity: acute Heart failure type: unspecified Qualified Code(s): I50.9 - Heart failure, unspecified
[2025-07-10] MEDS ORDERED: SODIUM CHLORIDE 0.65% NA SOLN 45 ML (OCEAN) PRN (23:50)
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
[2025-07-11] MEDS: HEPARIN 25000 UNIT/500 ML D5W 25,000 UNITS/500 ML BAG IV SCH (05:46)
[2025-07-11] MEDS: Heparin IV Adult Wt-Based Standard *NO* INITIAL Bolus Protocol IV STA (05:52)
[2025-07-11 05:59] LABS: Hematocrit (blood only) 41.7 % (42.0-52.0); Hemoglobin 13.6 g/dL (14.0-18.0); Immature Granulocytes # (auto) 0.02 K/uL (0.01-0.20); Immature Granulocytes % (auto) 0.3 %; Mean Corpuscular Hemoglobin 28.6 pg (25.0-34.0); Mean Corpuscular Volume 87.6 fL (80.0-100.0); Platelet Count 270 K/uL (130-400); RDW Standard Deviation 44.7 fL (36.4-46.3); Red Blood Count 4.76 M/uL (4.70-6.10); White Blood Count 5.98 K/ul (4.8-10.8)
[2025-07-11 06:18] LABS: Alanine Aminotransferase 32.0 U/L (7-52); Albumin Globulin Ratio 1.7 (0.9-2); Albumin Level 3.1 gm/dl (3.4-5.0); Alkaline Phosphatase 32.0 U/L (34-104); Anion Gap 7.0 (3-11); Bilirubin,Total 0.5 mg/dl (0.2-1.0); Blood Urea Nitrogen 17.0 mg/dl (6-23); Calcium 8.2 mg/dl (8.6-10.3); Carbon Dioxide 25.0 mmol/L (21-32); Chloride 109.0 mmol/L (98-107); Creatinine Clr Calc Pharmacy 94.6 ml/min; Globulin 1.8 gm/dl (2.5-4.0); Glucose 84.0 mg/dl (70-99(Fasting)); Magnesium 1.9 mg/dl (1.7-2.4); Potassium 3.8 mmol/L (3.5-5.1); Sodium 141.0 mmol/L (136-145); Total Protein 4.9 gm/dl (6.0-8.3)
[2025-07-11 06:30] LABS: INR 1.1 (0.9-1.1); Partial Thromboplastin Time 25 Seconds (21-31); Prothrombin Time 11.8 Seconds (9.0-12.0)
[2025-07-11] MEDS: SPIRONOLACTONE 12.5 MG TAB PO SCH (08:16)
[2025-07-11] MEDS: INFLUENZA VACC TS2025-26(6m+)/PF (IIV3) 0.5mL Syr IM ONE (10:31)
[2025-07-11] MEDS: PNEUMOCOCCAL VACCINE (PCV20) 20-VAL CONJ-DIP CRM/PF 0.5 ML SYR IM ONE (10:32)
[2025-07-11 12:50] LABS: ANTI-Xa, UFH(UnfractionatedHep 0.37 IU/ml (0.3-0.7)
--- NOTE | 2025-07-11 15:24 | Hospitalist Progress Note ---
Date of Service July 11, 2025 Assessment & Plan (1) Epigastric abdominal pain: (2) Edema: (3) Elevated troponin: (4) Shortness of breath: (5) HTN (hypertension): Plan 39M with no significant PMH other than alcohol and tobacco abuse presented 07/08 w/ c/o 4-5 weeks of worsening epigastric discomfort, "band like tightness," with associated SOB, new lower extremity swelling, and post prandial sx. He drinks several alcoholic beverages daily, but has not had any for the last week. Acute heart failure with reduced ejection fraction Right heart failure Likely demand ischemia Possible Nonischemic cardiomyopathy Elevated D-dimer, CTA chest and venous ble doppler neg for clot. Hypertension Patient comes in with shortness of breath and lower extremity swelling. See above. Troponin flat trend in 30s. LDL 77, BNP 883. CT chest negative for PE, positive for cardiomegaly and interstitial edema. Echo with EF of 15 to 20%, diastolic dysfunction, Grade III [restrictive pattern], LV and RV systolic function severely reduced, left atrium is moderately dilated. Status post cardiac cath 07/09: Normal epicardial coronary arteries. Cardiology on board, GDMT being optimized, Cr slightly up today, aldactone is dc'd. Follow-up on immunology and serology studies Continue with telemonitoring, likely will need LifeVest at the time of discharge. Monitor and replete electrolytes, low-sodium diet, fluid restriction of 1.8 L. Encouraged alcohol cessation. Transaminitis Concern for acid peptic disease Alcohol abuse: Encouraged cessation. Last drink 1 week ago CONTINUING EDUCATION DEAN making withdrawal less likely. Patient complained of epigastric pain at presentation, CTAP with hepatomegaly, mild ascites. LFT minimally elevated likely congestive hepatopathy ISO right heart failure. Continue with PPI given h/o alc abuse, patient reports no abdominal pain now. LFT trending down, continue to monitor. US liver in a month time upon discharge. GI as OP. LUE Superficial thrombosis: 07/11 LUE Doppler noted. On heparin drip, plan to transition to rivaroxaban 10 mg daily for total of 45 days of anticoagulation. Patient reports improvement in his LE swelling/pain. Prediabetes: A1c of 5.9, encouraged lifestyle modification and weight loss. Repeat A1c in 3 months, follow-up with PCP for long-term monitoring. DVT Px: hep sc. FULL CODE PCP: None Dispo: pcu tele, CM assisting w/ dc plan. Admission and Anticipated Discharge Date Admission Date: July 08, 2025 Subjective Patient was seen and examined at bedside. Patient was lying in bed, on room air, NAD, resting comfortably. Patient denies any chest pain, reports very gradual improvement in his abd tightness during activity. Patient denies sore throat Overnight pt complained of LUE swelling, us venous doppler positive for superficial thrombosis, pt was put on iv heparin. 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 Physical Exam Physical Exam: GENERAL: Alert and oriented x3. NAD, on RA. Obese class II. HEENT: No pallor, no icterus. Pupils equal, round and reactive to light. Oral mucosa moist. NECK: No JVD, no neck masses. HEART: S1 and S2 heard. Regular rate and rhythm. No murmur, no gallop. RESPIRATORY SYSTEM: Normal AP diameter. No accessory muscle use. No wheezing, bb crackles. ABDOMEN: Soft, bowel sounds present, nontender, no distention. CENTRAL NERVOUS SYSTEM: No facial droop. Speech is clear. Obeys simple commands. Moves extremities. EXTREMITIES: trace ble edema, no erythema seen. Results & Data Results & Data Vital Signs (Past 12 Hours) Vital Signs Temp Pulse Pulse Resp BP Pulse Ox O2 Del Method 07/11/25 11:55 36.6 C 98 H 22 143/104 H 94 Room Air 07/11/25 09:00 36.6 C 93 H 22 150/97 H 93 Room Air 07/11/25 08:16 90 07/11/25 08:16 Room Air 07/11/25 04:41 36.8 C 95 H 17 150/107 H 100 Room Air
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
[2025-07-12] MEDS: ACETAMINOPHEN 325 MG TAB PO PRN (01:42)
[2025-07-12 06:08] LABS: Hematocrit (blood only) 43.6 % (42.0-52.0); Hemoglobin 14.1 g/dL (14.0-18.0); Mean Corpuscular Hemoglobin 28.4 pg (25.0-34.0); Mean Corpuscular Volume 87.9 fL (80.0-100.0); Platelet Count 288 K/uL (130-400); RDW Standard Deviation 45.1 fL (36.4-46.3); Red Blood Count 4.96 M/uL (4.70-6.10); White Blood Count 6.67 K/ul (4.8-10.8)
[2025-07-12 06:25] LABS: ANTI-Xa, UFH(UnfractionatedHep 0.47 IU/ml (0.3-0.7)
[2025-07-12 06:35] LABS: Anion Gap 8.0 (3-11); Blood Urea Nitrogen 18.0 mg/dl (6-23); Calcium 8.4 mg/dl (8.6-10.3); Carbon Dioxide 24.0 mmol/L (21-32); Chloride 109.0 mmol/L (98-107); Creatinine Clr Calc Pharmacy 98.0 ml/min; Glucose 87.0 mg/dl (70-99(Fasting)); Potassium 3.9 mmol/L (3.5-5.1); Sodium 141.0 mmol/L (136-145)
[2025-07-12] MEDS: RIVAROXABAN 10 MG TABLET PO SCH (08:30)
[2025-07-12] MEDS: COUGH DROP (SUGAR FREE) LOZ 24 LOZ/1 BOX BUCCAL PRN (09:40)
[2025-07-12] MEDS: FUROSEMIDE INJ 20 MG/2 ML VIAL IV ONE (09:41)
--- NOTE | 2025-07-12 11:16 | XRay Report ---
XR chest 1V portable CLINICAL HISTORY: increased cough, ? increased congestion COMPARISON STUDY: 07/08/2025 FINDINGS: Stable cardiomegaly without pulmonary vascular congestion. No consolidation or pleural effu bruno seen. No pneumothorax. IMPRESSION: No pneumonia seen. ACT 112: Negative or not required by law. Electronically signed by: Ronnell Pulido M.D. 07/12/2025 11:15 AM
--- NOTE | 2025-07-12 13:28 | Hospitalist Progress Note ---
Date of Service July 12, 2025 Assessment & Plan (1) Epigastric abdominal pain: (2) Edema: (3) Elevated troponin: (4) Shortness of breath: (5) HTN (hypertension): Plan 39M with no significant PMH other than alcohol and tobacco abuse presented 07/08 w/ c/o 4-5 weeks of worsening epigastric discomfort, "band like tightness," with associated SOB, new lower extremity swelling, and post prandial sx. He drinks several alcoholic beverages daily, but has not had any for the last week. Acute heart failure with reduced ejection fraction Right heart failure Likely demand ischemia Possible Nonischemic cardiomyopathy Elevated D-dimer, CTA chest and venous ble doppler neg for clot. Hypertension Patient comes in with shortness of breath and lower extremity swelling. See above. Troponin flat trend in 30s. LDL 77, BNP 883. CT chest negative for PE, positive for cardiomegaly and interstitial edema. Echo with EF of 15 to 20%, diastolic dysfunction, Grade III [restrictive pattern], LV and RV systolic function severely reduced, left atrium is moderately dilated. Status post cardiac cath 07/09: Normal epicardial coronary arteries. Cardiology on board, GDMT being optimized, Cr better. d/w cardio, plan for overnight observation and possible dc humaira. Follow-up on immunology and serology studies Continue with telemonitoring, likely will need LifeVest at the time of discharge. Monitor and replete electrolytes, low-sodium diet, fluid restriction of 1.8 L. Encouraged alcohol cessation. Transaminitis Concern for acid peptic disease Alcohol abuse: Encouraged cessation. Last drink 1 week ago [employer] making withdrawal less likely. Patient complained of epigastric pain at presentation, CTAP with hepatomegaly, mild ascites. LFT minimally elevated likely congestive hepatopathy ISO right heart failure. Continue with PPI given h/o alc abuse, patient reports no abdominal pain now. LFT trending down, continue to monitor. US liver in a month time upon discharge if lft has not improved. GI as OP. LUE Superficial thrombosis: 07/11 LUE Doppler noted. 07/11 hep drip ---> 07/12 xarelto daily at 10 mg, plan for 45 days of anticoagulation for superficial VT. repeat US LUE as OP. Patient reports improvement in his LE swelling/pain. Prediabetes: A1c of 5.9, encouraged lifestyle modification and weight loss. Repeat A1c in 3 months, follow-up with PCP for long-term monitoring. DVT Px: hep sc. FULL CODE PCP: None Dispo: pcu tele, CM assisting w/ dc plan. Admission and Anticipated Discharge Date Admission Date: July 08, 2025 Subjective Patient was seen and examined at bedside. Patient was lying in bed, on room air, NAD, resting comfortably. Patient denies any chest pain. Pt today reports increased cough, has increased crackles on lung exam, will give iv lasix 20 mg , and get cxr. Patient denies sore throat Physical Exam Physical Exam: GENERAL: Alert and oriented x3. NAD, on RA. Obese class II. HEENT: No pallor, no icterus. Pupils equal, round and reactive to light. Oral mucosa moist. NECK: No JVD, no neck masses. HEART: S1 and S2 heard. Regular rate and rhythm. No murmur, no gallop. RESPIRATORY SYSTEM: Normal AP diameter. No accessory muscle use. No wheezing, b/l crackles. ABDOMEN: Soft, bowel sounds present, nontender, no distention. CENTRAL NERVOUS SYSTEM: No facial droop. Speech is clear. Obeys simple commands. Moves extremities. EXTREMITIES: trace ble edema, no erythema seen. Results & Data Results & Data Vital Signs (Past 12 Hours) Vital Signs Temp Pulse Pulse Resp BP BP Pulse Ox 07/12/25 10:59 36.8 C 108 H 20 128/99 97 07/12/25 09:45 97 H 07/12/25 07:58 07/12/25 07:02 37.0 C 94 H 18 153/116 H 174/108 H 98 07/12/25 02:23 36.9 C 96 H 18 145/111 H 99 O2 Del Method 07/12/25 10:59 Room Air 07/12/25 09:45 07/12/25 07:58 Room Air 07/12/25 07:02 Room Air 07/12/25 02:23 Room Air
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
[2025-07-13 07:47] LABS: Alanine Aminotransferase 30.0 U/L (7-52); Albumin Globulin Ratio 1.6 (0.9-2); Albumin Level 3.6 gm/dl (3.4-5.0); Alkaline Phosphatase 38.0 U/L (34-104); Anion Gap 9.0 (3-11); Bilirubin,Total 0.6 mg/dl (0.2-1.0); Blood Urea Nitrogen 18.0 mg/dl (6-23); Calcium 8.8 mg/dl (8.6-10.3); Carbon Dioxide 26.0 mmol/L (21-32); Chloride 107.0 mmol/L (98-107); Creatinine Clr Calc Pharmacy 90.0 ml/min; Globulin 2.2 gm/dl (2.5-4.0); Glucose 85.0 mg/dl (70-99(Fasting)); Magnesium 2.0 mg/dl (1.7-2.4); Potassium 3.9 mmol/L (3.5-5.1); Sodium 142.0 mmol/L (136-145); Total Protein 5.8 gm/dl (6.0-8.3)
[2025-07-13 07:53] LABS: ANTI-Xa, UFH(UnfractionatedHep < 0.10 IU/ml (0.3-0.7)
[2025-07-13] MEDS: VALSARTAN 80 MG TAB PO SCH (08:13)
--- NOTE | 2025-07-13 11:13 | Discharge Summary ---
Date of Service July 13, 2025 Admission HPI Per Admitting Provider This is a 39-year-old male who has no known significant past medical history except for alcohol and tobacco abuse who presents to ED secondary to epigastric tightening and bloating x 1 month. He does not follow with a primary care provider. He states over the last month noting a bandlike tightness in his upper abdomen that gets worse with exertion. He reports even minimal walking or a flight of steps he gets this tightness along with shortness of breath. It has been progressing over the last month. He also reports anytime he eats anything fatty it tends to worsen his symptoms. He denies any carter right upper quadrant pain. He denies any carter chest pain or any radiation of his symptoms to his neck arm or jaw. He denies any fever, chills, sweats, lightheadedness, dizziness, chest pain, hemoptysis, nausea, vomiting, diarrhea, change in her bowel or urinary habits. He does report feeling extremely bloated. He reports not eating tends to make his symptoms better. He notes increased lower extre mity swelling. He thought this was related to gout. He is unsure if he has had any weight changes he has not monitored this. He does drink alcohol on a daily basis. He drinks several malt beverages along with a few shots a day. He has not been able to do this for the past week due to his symptoms. He denies any symptoms of withdrawal. He has tried [id number] symptoms including Pepcid, Prilosec and magnesium products with no relief. He has not tried anything on a consistent basis. He reports a family history of alcoholism in his father and his maternal grandmother. He also notes his mother has had several bleeding ulcers. He denies any family history any premature CAD or known cirrhosis. He denies any prior surgical history. He does report a history of anemia as an as well as vomiting bile. Admission Exam Per Admitting Provider Constitutional: WD/WN, vitals as above, NAD, sitting up in bed, pleasant, conversing easily, appears anxious Head: Normocephalic, Atraumatic Eyes: conjunctivae normal, anicteric sclerae ENMT: external ear and nose normal, oropharynx normal Neck: trachea midline, no thyromegaly normal visual inspection Respiratory: CTAB, no W/R/R, normal inspection, no accessory muscle use Cardiovascular: tachycardic rate regular rhythm, no murmur, +1 lower ext pre tibial edema Chest: normal inspection of chest Abdomen: S, NT, +mild distension, +BS x 4, negative murphys, no rebound/guarding Musculoskeletal: no cyanosis or clubbing, extremities AROM x 4 Skin: no rashes, warm and dry normal turgor Neurologic: no face palsy, no dysarthria CN's II-XI intact bilaterally and moves all extremities Psychiatric: A+Ox3, euthymic affect Principal Diagnosis Acute heart failure with reduced ejection fraction Right heart failure Likely demand ischemia Possible Nonischemic cardiomyopathy Elevated D-dimer Hypertension Transaminitis Concern for acid peptic disease Alcohol abuse LUE Superficial thrombosis Prediabetesa Discharge Exam GENERAL: Alert and oriented x3. NAD, on RA. Obese class II. HEENT: No pallor, no icterus. Pupils equal, round and reactive to light. Oral mucosa moist. NECK: No JVD, no neck masses. HEART: S1 and S2 heard. Regular rate and rhythm. No murmur, no gallop. RESPIRATORY SYSTEM: Normal AP diameter. No accessory muscle use. No wheezing, no crackles. ABDOMEN: Soft, bowel sounds present, nontender, no distention. CENTRAL NERVOUS SYSTEM: No facial droop. Speech is clear. Obeys simple commands. Moves extremities. EXTREMITIES: no ble edema, no erythema seen. Discharge Data Allergies Allergy/AdvReac Type Severity Reaction Status Date / Time walnut Allergy Unknown "WEIRD Unverified 07/17/23 01:39 FEELING IN MY TONGUE,INFLAMMATION" Consultations 07/08/25 08:23 ED Decision to Admit Stat 07/08/25 11:44 Consult Cardiology Routine 07/09/25 10:31 Consult Cardiac Rehabilitation Routine Procedures Performed Operation Date: 07/09/25 09:00 Actual Procedures p Cineradiography w/Routine Exam - Dmitry Alcazar MD, PhD p Cath, Coronaries ONLY (no LV) - Dmitry Alcazar MD, PhD Ordered Studies 07/08/25 05:56 CT abd pelvis IV con only Stat 07/08/25 08:55 US abdomen limited Stat US venous doppler LE BI Stat 07/08/25 10:45 CT for pulmonary embolism PE [CT angio chest PE protocol] Stat 07/09/25 08:47 CL Cath Imgs for PACS use only Routine 07/11/25 US venous doppler UE LT Urgent Hospital Course (1) Epigastric abdominal pain: (2) Edema: (3) Elevated troponin: (4) Shortness of breath: (5) HTN (hypertension): Plan 39M with no significant PMH other than alcohol and tobacco abuse presented 07/08 w/ c/o 4-5 weeks of worsening epigastric discomfort, "band like tightness," with associated SOB, new lower extremity swelling, and post prandial sx. He drinks several alcoholic beverages daily, but has not had any for the last week. Acute heart failure with reduced ejection fraction Right heart failure Likely demand ischemia Possible Nonischemic cardiomyopathy Elevated D-dimer, CTA chest and venous ble doppler neg for clot. Hypertension Patient comes in with shortness of breath and lower extremity swelling. See above. Troponin flat trend in 30s. LDL 77, BNP 883. CT chest negative for PE, positive for cardiomegaly and interstitial edema. Echo with EF of 15 to 20%, diastolic dysfunction, Grade III [restrictive pattern], LV and RV systolic function severely reduced, left atrium is moderately dilated. Status post cardiac cath 07/09: Normal epicardial coronary arteries. Cardiology on board, GDMT being optimized, Cr slightly up d/w cardio, OK for dc on current meds. Follow-up on immunology and serology studies during PCP visit upon discharge. Pt fitted w/ lifevest. low-sodium diet, fluid restriction of 1.8 L. Encouraged alcohol cessation. Transaminitis Concern for acid peptic disease Alcohol abuse: Encouraged cessation. Last drink 1 week ago [employer] making withdrawal less likely. Patient complained of epigastric pain at presentation, CTAP with hepatomegaly, mild ascites. LFT minimally elevated likely congestive hepatopathy ISO right heart failure. Continue with PPI given h/o alc abuse, patient reports no abdominal pain now. LFT resolved to normal. LUE Superficial thrombosis: 07/11 LUE Doppler noted. 07/11 hep drip ---> 07/12 xarelto daily at 10 mg, plan for 45 days of anticoagulation for superficial VT. repeat US LUE as OP. Patient reports improvement in his LE swelling/pain. 43 more days of xarelto on dc. Prediabetes: A1c of 5.9, encouraged lifestyle modification and weight loss. Repeat A1c in 3 months, follow-up with PCP for long-term monitoring. pt has been made aware of this. DVT Px: hep sc. FULL CODE PCP: None Patient is being discharged with following instructions at the point of discharge: Follow-up with your primary care physician within a week time and likely you will need labs CBC/CMP/magnesium/phosphorus. You have been diagnosed with severe left and right heart failure, cardiology has evaluated you, you will be discharged on LifeVest. Follow-up with cardiology closely (first visit within a month time), you will need ongoing monitoring/management of your cardiac medications. Recommend heart healthy diet, low-sodium diet [less than 2 g sodium per day], fluid restriction of 1.8 L/day. Recommend complete cessation of alcohol. You were also noted to have prediabetes with A1c of 5.9. As discussed at the bedside, lifestyle modification including daily exercise regimen and weight loss would be helpful. You will need repeat A1c in 3 months, coordinate with your PCP office to set up the test. You are also noted to have left upper extremity superficial thrombosis, you will be discharged on blood thinner for 45 days total. Recommend that you get left upper extremity Doppler scan again in about 1 month to document resolution of your thrombosis. Coordinate with your PCP office to set up the test. Take your medications as prescribed. Please make sure that you are able to get your medications today by calling your pharmacy before you leave the hospital so that your treatment continuity is not broken. Home Health Attestation I certify that this patient is under my care and that I, or a physicians press operator assistant working with me, had a face to-face encounter that meets the home health eoux-im-zrcz encounter requirements with this patient. The encounter with the patient was in whole, or in part, for the following medical condition, which is the primary reason for home health care (list medical condition): I certify that, based on my findings, the following services are medically necessary home health services: My clinical findings support the need for the above services because: Further, I certify that my clinical findings support that this patient is homebound (i.e. absences from home require considerable and taxing effort and are for medical reasons or restorationism services or infrequently or of short duration when for other reasons) because: Certification for Home Health Services: Based on the above findings, I certify that this patient is confined to the home and needs intermittent chcf care, physical therapy and/or speech therapy or continues to need occupational therapy. The patient is under my care, and I have initiated the establishment of the plan of care. This patient will be followed by a physician who will periodically review the plan of care. Total Time Total Time Spent Total Time Spent (In Minutes): 40 Discharge Plan Discharge Items Patient Disposition: Home - Self-Care Reason For Visit: ELEBARED TROPONIN, VOLUME OVERLOAD Discharge Diagnosis: Acute heart failure with reduced ejection fraction Right heart failure Likely demand ischemia Possible Nonischemic cardiomyopathy Elevated D-dimer Hypertension Transaminitis Concern for acid peptic disease Alcohol abuse LUE Superficial thrombosis Prediabetesa Condition on Discharge: Fair Activity: Resume your previous activity Non-emergency contact: Primary Care Provider Call non-emergency contact if: you have any medication questions and your symptoms worsen Follow-up/Referrals: Amber Alegria PA-C [Physician Child Protection Specialist] - 07/15/25 3:00 pm (Please arrive 15 min. before your scheduled appointment.) Yana Mcknight MD [Physician] - 08/12/25 2:00 pm (Please arrive 15 min. before your scheduled appointment. This is to become established with primary care.) Diet: Heart Healthy and Low Sodium (2gm) Fluids: 1800ml (7 cups) Addtl Attending Provider Instructions: Follow-up with your primary care physician within a week time and likely you will need labs CBC/CMP/magnesium/phosphorus. You have been diagnosed with severe left and right heart failure, cardiology has evaluated you, you will be discharged on LifeVest. Follow-up with cardiology closely (first visit within a month time), you will need ongoing monitoring/management of your cardiac medications. Recommend heart healthy diet, low-sodium diet [less than 2 g sodium per day], fluid restriction of 1.8 L/day. Recommend complete cessation of alcohol. You were also noted to have prediabetes with A1c of 5.9. As discussed at the bedside, lifestyle modification including daily exercise regimen and weight loss would be helpful. You will need repeat A1c in 3 months, coordinate with your PCP office to set up the test. You are also noted to have left upper extremity superficial thrombosis, you will be discharged on blood thinner for 45 days total. Recommend that you get left upper extremity Doppler scan again in about 1 month to document resolution of your thrombosis. Coordinate with your PCP office to set up the test. Take your medications as prescribed. Please make sure that you are able to get your medications today by calling your pharmacy before you leave the hospital so that your treatment continuity is not broken. Pending Studies at Discharge: Yes Stand-Alone Forms: My [facility], Smoking Cessation Medications and DC Order Prescriptions: New Xarelto 10 mg Tablet 10 mg PO DAILY Qty: 42 0RF carvedilol 6.25 mg Tablet 6.25 mg PO BIDM Qty: 60 0RF hydralazine 25 mg Tablet 25 mg PO BID Qty: 60 0RF valsartan [Diovan] 80 mg Tablet 160 mg PO QAM Qty: 60 0RF pantoprazole 40 mg Tablet,Delayed Release (Dr/Ec) 40 mg PO BID Qty: 60 0RF No Action No Known Home Medications Discharge Orders: Discharge Order (Routine); Ordered 07/13/25 Ordered By: Berenice Medina/Other Patient Handouts: Low-Salt Choices, Heart Failure Flare Up Signs, Heart Failure: Tracking Your Weight, Heart Failure Make Changes Diet, My Heart Failure Symptoms Chart, Heart Failure: Know Your Baselines, Heart Failure Care, Heart Failure Admission Data Admit Date/Time: 07/08/25 08:59 Attending Provider: Berenice Gomez Admit Provider: Melvin Marquez Primary Care Provider: PCP,NO Other Providers: Melvin Marquez; Lenin San
[2025-07-13 15:12] VITALS: BP 123/85; PULSE 91; RESP 19; TEMP 99; O2SAT 98
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
[2025-07-15 06:22] LABS: Creatinine, 24 hr Urine 1.67 g/24 h (0.50-2.15); Protein, Urine 24 Hour 297 mg/24 h (<150); Ur Albumin % 70 %; Ur Alpha-1-globulin % 4 %; Ur Alpha-2-globulin % 10 %; Ur Beta Globulin % 10 %; Ur Gamma Globulin % 7 %; Ur Protein/Creatinine Rat mg/g 177 mg/g creat (<100)
[2025-07-15 11:02] LABS: Hepatitis A Antibody IgM NON-REACTIVE (NON-REACTIVE); Hepatitis B Core Antibody IgM NON-REACTIVE (NON-REACTIVE)
[2025-07-15 12:32] LABS: Albumin 2.7 g/dL (3.8-4.8); Beta-1-Globulin 0.3 g/dL (0.4-0.6); Gamma Globulin 0.3 g/dL (0.8-1.7); HIV 1 RNA PCR Copies/ML NOT DETECTED copies/mL (NOT DETECTED); Total Protein 4.5 g/dL (6.1-8.1)
== END 2025-07-13 16:07 | disposition home or self-care (01) | DRG 286 ==
LOC: ED 04:57 → SUATTDRO 08:59 → EDINP 08:59 → 2N 16:29 → 2E 07-09 12:10
PROC: CLB.CCO (2025-07-09 09:00)